=== PATIENT | female | born 1980 | race Caucasian/White ===

== ENCOUNTER → 2016-11-23 | Outpatient (CLI) | payer OTHER ==
[~2016-11-23] MED LIST: DIPH25CA65 PO; LISI20TA PO; PANT40TA PO; RANI150T3 PO
[2016-11-23 12:28] LABS: BASO % 0.1 %; BASO ABS # 0.01 K/uL (0-0.2); COMPLETE YES; EOS % 2.1 %; HEMATOCRIT 42.8 % (37-47); IG% 0.1 %; LYMPH ABS # 1.55 K/uL (1.2-3.4); MEAN CELL VOLUME 86.8 fL (80-100); MEAN CORPUSCULAR HEMOGLOBIN 29.6 pg (25-34); MEAN CORPUSCULAR HGB CONC 34.1 g/dl (32-36); MEAN PLATELET VOLUME 11.2 fL (7.4-10.4); MONO % 8.8 %; NEUT % 66.9 %; PLATELET COUNT 290 K/uL (130-400); RED BLOOD COUNT 4.93 M/uL (4.2-5.4); WHITE BLOOD COUNT 7.03 K/uL (4.8-10.8)
[2016-11-23 12:43] LABS: ALT/SGPT 33 U/L (12-78); CREATININE 0.82 mg/dl (0.60-1.20)
[2016-11-23 12:46] LABS: ALKALINE PHOSPHATASE 75 U/L (45-117); AST/SGOT 19 U/L (15-37)
== END | disposition home or self-care (01) ==
LOC: C.LAB1850 10:21
PROVIDERS: ATTEND Internal Medicine Rheumatology
DX: Z79.899 Other long term (current) drug therapy (principal); M72.2 Plantar fascial fibromatosis; M35.9 Systemic involvement of connective tissue, unspecified

== ENCOUNTER → 2017-04-13 | Outpatient (CLI) | payer OTHER ==
[2017-04-13 12:39] LABS: BASO % 0.3 %; BASO ABS # 0.02 K/uL (0-0.2); COMPLETE YES; EOS % 3.5 %; HEMATOCRIT 42.4 % (37-47); IG% 0.2 %; LYMPH % 28.2 %; LYMPH ABS # 1.79 K/uL (1.2-3.4); MEAN CELL VOLUME 87.6 fL (80-100); MEAN CORPUSCULAR HEMOGLOBIN 29.5 pg (25-34); MEAN CORPUSCULAR HGB CONC 33.7 g/dl (32-36); MEAN PLATELET VOLUME 10.8 fL (7.4-10.4); MONO % 10.6 %; NEUT % 57.2 %; PLATELET COUNT 269 K/uL (130-400); RED BLOOD COUNT 4.84 M/uL (4.2-5.4); WHITE BLOOD COUNT 6.35 K/uL (4.8-10.8)
[2017-04-13 12:48] LABS: ALT/SGPT 34 U/L (12-78); AST/SGOT 19 U/L (15-37); CREATININE 0.87 mg/dl (0.60-1.20)
[2017-04-13 12:51] LABS: ALKALINE PHOSPHATASE 83 U/L (45-117)
== END | disposition home or self-care (01) ==
LOC: C.LABBFT 08:09
PROVIDERS: ATTEND Internal Medicine Rheumatology
DX: M72.2 Plantar fascial fibromatosis (principal); M35.9 Systemic involvement of connective tissue, unspecified; Z79.899 Other long term (current) drug therapy

== ENCOUNTER → 2017-05-11 | Outpatient (CLI) | payer OTHER ==
[2017-05-11 12:52] LABS: ALT/SGPT 32 U/L (12-78); BLOOD UREA NITROGEN 15 mg/dl (7-18); BUN/CREATININE RATIO 15.9 (10-20); CALCIUM 8.9 mg/dl (8.5-10.1); CARBON DIOXIDE 25 mmol/L (21-32); CHLORIDE 104 mmol/L (98-107); CHOLESTEROL 172 mg/dl (0-200); CREATININE 0.96 mg/dl (0.60-1.20); GLUCOSE 93 mg/dl (70-99); POTASSIUM 4.1 mmol/L (3.5-5.1); SODIUM 135 mmol/L (136-145)
[2017-05-11 13:02] LABS: ALB/GLOB RATIO 0.9 (0.9-2); ALKALINE PHOSPHATASE 78 U/L (45-117); AST/SGOT 21 U/L (15-37); CHOLESTEROL/HDL RATIO 2.9; HDL CHOLESTEROL 59 mg/dl; LDL CHOLESTEROL CALCULATED 96 mg/dl; TRIGLYCERIDES 86 mg/dl (0-150); VERY LOW DENSITY LIPOPROT CALC 17 mg/dl
[2017-05-11 13:20] LABS: ESTIMATED AVERAGE GLUCOSE 105 mg/dl; HA1C FLAG Normal (Normal)
--- NOTE | 2017-05-16 10:35 | CODING QUERY MEDICAL NECESSITY ---
CQSUPPORTING DIAGNOSIS NEEDED A supporting diagnosis is required for the test/procedure performed on this patient in order for us to be reimbursed by the patient's insurance. Please provide a supporting diagnosis for the following test/procedure listed below next to the test name along with your signature. *If there is no additional diagnosis for this patient that would support the following test/procedure please document that below next to the test/procedure. Test(s)/Procedure(s) that require a supporting diagnosis: DOS 05/11/17 GLYCATED HEMOGLOBIN TEST THYROID TEST Provider Signature: Date: Thank you Rukhsana Mayes Health Information Management Once completed, please kindly fax back to [phone] For questions please call [phone]
== END | disposition home or self-care (01) ==
LOC: C.LABBFT 08:09
PROVIDERS: ATTEND Internal Medicine
DX: I10 Essential (primary) hypertension (principal); R73.01 Impaired fasting glucose; E78.5 Hyperlipidemia, unspecified

== ENCOUNTER → 2017-08-22 | Outpatient (CLI) | payer OTHER ==
[2017-08-22 17:07] LABS: BASO % 0.3 %; BASO ABS # 0.02 K/uL (0-0.2); COMPLETE YES; EOS % 2.6 %; HEMATOCRIT 39.3 % (37-47); IG% 0.3 %; LYMPH % 23.6 %; LYMPH ABS # 1.76 K/uL (1.2-3.4); MEAN CELL VOLUME 87.3 fL (80-100); MEAN CORPUSCULAR HEMOGLOBIN 29.6 pg (25-34); MEAN CORPUSCULAR HGB CONC 33.8 g/dl (32-36); MONO % 9.4 %; NEUT % 63.8 %; PLATELET COUNT 281 K/uL (130-400); WHITE BLOOD COUNT 7.45 K/uL (4.8-10.8)
[2017-08-22 17:14] LABS: ALT/SGPT 30 U/L (12-78); AST/SGOT 18 U/L (15-37); CREATININE 0.91 mg/dl (0.60-1.20)
== END | disposition home or self-care (01) ==
LOC: C.LABBFT 12:05
PROVIDERS: ATTEND Internal Medicine Rheumatology
DX: Z51.81 Encounter for therapeutic drug level monitoring (principal); Z79.899 Other long term (current) drug therapy; M72.2 Plantar fascial fibromatosis; M35.9 Systemic involvement of connective tissue, unspecified

== ENCOUNTER → 2017-12-19 | Outpatient (CLI) | payer OTHER ==
[2017-12-19 12:42] LABS: BASO % 0.5 %; BASO ABS # 0.03 K/uL (0-0.2); EOS % 3.8 %; EOS ABS # 0.22 K/uL (0-0.5); HEMATOCRIT 42.9 % (37-47); HEMOGLOBIN 14.2 g/dL (12.0-16.0); IG# 0.01 K/uL (0.00-0.02); LYMPH % 28.6 %; LYMPH ABS # 1.64 K/uL (1.2-3.4); MEAN CORPUSCULAR HEMOGLOBIN 28.1 pg (25-34); MEAN CORPUSCULAR HGB CONC 33.1 g/dl (32-36); MEAN PLATELET VOLUME 10.6 fL (7.4-10.4); MONO % 7.9 %; MONO ABS # 0.45 K/uL (0.11-0.59); NEUT ABS # 3.38 K/uL (1.4-6.5); PLATELET COUNT 284 K/uL (130-400); RED CELL DISTRIBUTION WIDTH SD 46.6 fL (36.4-46.3); WHITE BLOOD COUNT 5.73 K/uL (4.8-10.8)
[2017-12-19 13:50] LABS: ALT/SGPT 30 U/L (12-78); AST/SGOT 14 U/L (15-37)
== END | disposition home or self-care (01) ==
LOC: C.LABBFT 09:20
PROVIDERS: ATTEND Internal Medicine Rheumatology
DX: Z51.81 Encounter for therapeutic drug level monitoring (principal); Z79.899 Other long term (current) drug therapy; M35.9 Systemic involvement of connective tissue, unspecified; L02.92 Furuncle, unspecified

== ENCOUNTER 2018-02-06 13:29 | Emergency (ER) | payer OTHER ==
[~2018-02-06] VITALS: Ht 162.6 cm; Wt 122.0 kg
[2018-02-06 13:35] VITALS: TEMP 36.6; Ht 162.6 cm; Wt 122.0 kg
[2018-02-06] MEDS ORDERED: PLQ200 (14:24)
[2018-02-06] MEDS ORDERED: MELO-83 (14:24)
[2018-02-06] MEDS ORDERED: LISI-787 PO (14:27)
--- NOTE | 2018-02-06 14:51 | EMERGENCY ROOM VISIT NOTE ---
History First contact with patient: 14:22 Chief Complaint: BACK PAIN Stated Complaint: SHARP PAINS IN BACK, HEAD NUMB, SHAKEING,DRY MOUTH History of Present Illness 37F who presents to the Emergency Room with complaints of upper back pain starting this morning. The pain is worse when she moves. She was at work when the pain started. She denies any trauma to the area. She had similar symptoms a couple of years ago and the pain went away on her own. The pain radiates to her shoulder blades. On review of systems she denies fevers, denies vomit, denies diarrhea, denies chest pain, but states that she is short of breath and it's new onset. No cough. PMHx: Hypokalemia from her medications, HTN, s/p cholecystectomy, GERD. Review of Systems See HPI for pertinent positives and negatives. A total of ten systems were reviewed and were otherwise negative. Constitutional: No fever, No chills Respiratory: + shortness of breath, + dyspnea on exertion, No cough, No sputum, No wheezing, No dyspnea at rest Cardiovascular: No chest pain Abdomen: No pain, No nausea, No vomiting, No diarrhea, No constipation Genitourinary - Female: No dysuria Past Medical/Surgical History Medical Problems: (1) Allergy to bee sting (2) Diabetes mellitus type 2 (3) ESOPHAGEAL REFLUX (4) Gastritis (5) GERD (gastroesophageal reflux disease) (6) Head contusion (7) Hiatal hernia (8) HYPERLIPIDEMIA NEC/NOS (9) HYPERTENSION NOS (10) IMPAIRED FASTING GLUCOSE (11) MORBID OBESITY (12) OBESITY, NOS (13) Work related injury Surgical Problems: (1) Cholecystectomy (2) Jbphh Teeth Removal Family History Cancer Diabetes mellitus Gallbladder disease Heart disease Hypertension Seizures Social History Smoking Status: Never Smoker Alcohol Use: none Drug Use: none Marital Status: single Housing Status: lives with family Occupation Status: employed Current/Historical Medications Scheduled Lisinopril/Hctz (Zestoretic 20MG/12.5MG), 1 TAB PO DAILY Pantoprazole (Protonix), 40 MG PO DAILY Ranitidine Hcl (Zantac), 150 MG PO HS Scheduled PRN Diphenhydramine Hcl (Benadryl Allergy), 2 CAP PO DAILY PRN for ALLERGIC REACTION Miscellaneous Medications Hydroxychloroquine Sulfate (Hydroxychloroquine Sulfat) Meloxicam (Meloxicam) Physical Exam Vital Signs Date Time Temp Pulse Resp B/P (MAP) Pulse Ox O2 Delivery O2 Flow Rate FiO2 02/06/18 15:35 93 18 135/88 99 Room Air 02/06/18 13:35 36.6 105 18 130/77 100 Room Air Physical Exam Gen: No acute distress. HEENT: Head - normocephalic and atraumatic. Pupils are equal, round, and reactive to light. Extraocular eye muscles are intact and sclera are anicteric. Ears - bilaterally patent canals with noninjected tympanic membranes and no evidence of hemotympanum. Nose - moist nasal mucosa without discharge. Mouth - moist buccal mucosa. Oropharynx is nonerythematous and there is no tonsillar exudate or edema noted. Neck: Supple; no JVD, nuchal rigidity, cervical lymphadenopathy, or auscultated bruits. Heart: Regular rate and rhythm. There is a normal S1 and S2 with no murmurs, clicks, or gallops appreciated. Lungs: Clear to auscultation bilaterally with no wheezes, rales, or rhonchi. Abdomen: Soft, completely nontender, nondistended, with good bowel sounds. There are no palpable pulsatile masses or hepatosplenomegaly. There is no guarding, rigidity, or rebound noted. Extremities: No evidence of cyanosis, clubbing, or edema. There are easily palpable peripheral pulses. Pt has pain on palpation of the cervical and thoracic spine. The pain is also worse with movement (lateral flexion of the spine). Skin: No rash on the skin. Neuro:The patient is awake and alert, oriented to day, time, and place. Muscle strength is 5/5 in all 4 extremities. The patient has equal mini baccarat dealer strength and equal pedal push and pull. There are no cerebellar signs. Medical Decision & Procedures ER Provider Diagnostic Interpretation: CHEST 1 VW FRONT-NOT PORTABLE HISTORY: 37 years-old Female SOB acute shortness of breath COMPARISON: None available TECHNIQUE: AP view of the chest FINDINGS: Cardiac mediastinal and hilar silhouettes are within normal limits. There is no pneumothorax, pleural effusion, focal airspace consolidation or overt pulmonary edema. The bones of the chest appear grossly intact. Surgical clips of the right upper quadrant suggest prior cholecystectomy. IMPRESSION: No acute process. CERVICAL SPINE 2 OR 3 VIEWS CLINICAL HISTORY: 37 years-old Female presenting with Cervicalgia. TECHNIQUE: Lateral, frontal, and open-mouth odontoid views of the cervical spine were obtained. COMPARISON: 02/05/2011. FINDINGS: Straightening of normal cervical lordosis likely positional. Vertebral bodies maintain normal height and alignment. Intervertebral disc heights preserved. No degenerative change. No evidence of a fracture or subluxation. Normal predental interval. No prevertebral soft tissue swelling. Lung apices clear. Lateral masses of C1 articulate normally with C2. IMPRESSION: Straightening of normal cervical lordosis possibly positional or related to muscle spasm. No radiographic evidence of acute osseous injury or degenerative change. THORACIC SPINE 3 VIEWS ROUTINE HISTORY: 37 years-old Female thoracic spine tenderness acute mid back pain without reported trauma COMPARISON: Chest radiograph of same day TECHNIQUE: 3 views of the thoracic spine FINDINGS: There are 12 thoracic type rib-bearing vertebral segments present. Mild multilevel endplate spurring without acute fracture, subluxation or significant intervertebral disc space narrowing. No compression deformity. Imaged lung barnes appear clear. Cholecystectomy clips noted. IMPRESSION: No acute fracture or subluxation. Laboratory Results 02/06/18 14:57 Red Blood Count 4.78, Mean Corpuscular Volume 83.7, Mean Corpuscular Hemoglobin 28.7, Mean Corpuscular Hemoglobin Concent 34.3, Mean Platelet Volume 9.7, Neutrophils (%) (Auto) 64.0, Lymphocytes (%) (Auto) 24.5, Monocytes (%) (Auto) 9.1, Eosinophils (%) (Auto) 2.0, Basophils (%) (Auto) 0.3, Neutrophils # (Auto) 4.44, Lymphocytes # (Auto) 1.70, Monocytes # (Auto) 0.63, Eosinophils # (Auto) 0.14, Basophils # (Auto) 0.02 02/06/18 14:57 Test 02/06/18 14:57 White Blood Count 6.94 K/uL (4.8-10.8) Red Blood Count 4.78 M/uL (4.2-5.4) Hemoglobin 13.7 g/dL (12.0-16.0) Hematocrit 40.0 % (37-47) Mean Corpuscular Volume 83.7 fL (80-100) Mean Corpuscular Hemoglobin 28.7 pg (25-34) Mean Corpuscular Hemoglobin Concent 34.3 g/dl (32-36) Platelet Count 267 K/uL (130-400) Mean Platelet Volume 9.7 fL (7.4-10.4) Neutrophils (%) (Auto) 64.0 % Lymphocytes (%) (Auto) 24.5 % Monocytes (%) (Auto) 9.1 % Eosinophils (%) (Auto) 2.0 % Basophils (%) (Auto) 0.3 % Neutrophils # (Auto) 4.44 K/uL (1.4-6.5) Lymphocytes # (Auto) 1.70 K/uL (1.2-3.4) Monocytes # (Auto) 0.63 K/uL (0.11-0.59) Eosinophils # (Auto) 0.14 K/uL (0-0.5) Basophils # (Auto) 0.02 K/uL (0-0.2) RDW Standard Deviation 45.0 fL (36.4-46.3) RDW Coefficient of Variation 14.7 % (11.5-14.5) Immature Granulocyte % (Auto) 0.1 % Immature Granulocyte # (Auto) 0.01 K/uL (0.00-0.02) Anion Gap 6.0 mmol/L (3-11) Est Creatinine Clear Calc Drug Dose 106.6 ml/min Estimated GFR () 90.5 Estimated GFR (Non- 78.1 BUN/Creatinine Ratio 17.3 (10-20) Calcium Level 8.7 mg/dl (8.5-10.1) Total Bilirubin 0.3 mg/dl (0.2-1) Aspartate Amino Transf (AST/SGOT) 24 U/L (15-37) Alanine Aminotransferase (ALT/SGPT) 41 U/L (12-78) Alkaline Phosphatase 86 U/L (45-117) Total Protein 7.9 gm/dl (6.4-8.2) Albumin 4.0 gm/dl (3.4-5.0) Globulin 3.9 gm/dl (2.5-4.0) Albumin/Globulin Ratio 1.0 (0.9-2) Lipase 151 U/L (73-393) Medications Administered Medications (Trade) Dose Ordered Sig/Figueroa Route Start Time Stop Time Status Last Admin Dose Admin Ketorolac Tromethamine (Toradol Inj) 15 mg ONE ONCE IV 02/06/18 15:00 02/06/18 15:02 DC 02/06/18 15:09 15 MG Medical Decision The patient's care and disposition was discussed with Dr. Roman, Attending ED Physician. This is a 37F with upper back pain. Differential diagnosis include lumbago, sciatica, cauda equina, epidural abscess, osteomyelitis, fracture, aortic disease, metastatic disease, infection, renal colic, gastrointestinal, as well as others were entertained. Triage Nursing notes were reviewed. ED Course included an extensive history and physical exam, labs and imaging. Labs and Imaging were WNL. 2:30pm - Pt was seen and examined by myself and initial orders were placed. 2:50 - Pt was examined by Dr. Roman. 3:09 - Pt was given a dose of 15mg IV Toradol. 4:15pm - Imaging results reviewed with patient. Patient reports her pain has improved. We discussed outpatient pain management techniques such as Ibuprofen 600mg TID PRN pain and follow up with Dr. Rudd (she has follow up in May, she might move that appointment up sooner). The pt was informed about the findings as listed above. All questions were answered. Patient was advised to follow up with PCP. Return instructions were outlined and the patient was discharged in good condition. The patient was referred to PCP for recheck of the current condition. Head Trauma GCS Score: 15 Impression Primary Impression: Thoracic back pain Departure Information Dispostion Home / Self-Care Condition GOOD Referrals Will Rudd M.D. (PCP) Patient Instructions My [facility] Resident Involvement: Resident Care Provided Care Provided: Adult ED
[2018-02-06] MEDS ORDERED: KETOROLAC TROMETHAMINE 15 MG/ML VIAL IV ONE (15:00)
[2018-02-06 15:09] LABS: BASO % 0.3 %; BASO ABS # 0.02 K/uL (0-0.2); EOS ABS # 0.14 K/uL (0-0.5); HEMOGLOBIN 13.7 g/dL (12.0-16.0); IG# 0.01 K/uL (0.00-0.02); LYMPH % 24.5 %; MEAN CELL VOLUME 83.7 fL (80-100); MEAN CORPUSCULAR HEMOGLOBIN 28.7 pg (25-34); MEAN CORPUSCULAR HGB CONC 34.3 g/dl (32-36); MEAN PLATELET VOLUME 9.7 fL (7.4-10.4); MONO % 9.1 %; MONO ABS # 0.63 K/uL (0.11-0.59); NEUT ABS # 4.44 K/uL (1.4-6.5); PLATELET COUNT 267 K/uL (130-400); RED CELL DISTRIBUTION WIDTH CV 14.7 % (11.5-14.5); WHITE BLOOD COUNT 6.94 K/uL (4.8-10.8)
[2018-02-06 15:27] LABS: CALCIUM 8.7 mg/dl (8.5-10.1); CREATININE 0.94 mg/dl (0.60-1.20); POTASSIUM 3.5 mmol/L (3.5-5.1)
[2018-02-06 15:30] LABS: TOTAL PROTEIN 7.9 gm/dl (6.4-8.2)
--- NOTE | 2018-02-06 15:41 | DIAGNOSTIC IMAGING REPORT ---
CERVICAL SPINE 2 OR 3 VIEWS CLINICAL HISTORY: 37 years-old Female presenting with Cervicalgia. TECHNIQUE: Lateral, frontal, and open-mouth odontoid views of the cervical spine were obtained. COMPARISON: 02/05/2011. FINDINGS: Straightening of normal cervical lordosis likely positional. Vertebral bodies maintain normal height and alignment. Intervertebral disc heights preserved. No degenerative change. No evidence of a fracture or subluxation. Normal predental interval. No prevertebral soft tissue swelling. Lung apices clear. Lateral masses of C1 articulate normally with C2. IMPRESSION: Straightening of normal cervical lordosis possibly positional or related to muscle spasm. No radiographic evidence of acute osseous injury or degenerative change. Electronically signed by: Carl Dominguez M.D. 02/06/2018 3:40 PM Dictated Date/Time: 02/06/2018 3:38 PM
--- NOTE | 2018-02-06 15:47 | DIAGNOSTIC IMAGING REPORT ---
CHEST 1 VW FRONT-NOT PORTABLE HISTORY: 37 years-old Female SOB acute shortness of breath COMPARISON: None available TECHNIQUE: AP view of the chest FINDINGS: Cardiac mediastinal and hilar silhouettes are within normal limits. There is no pneumothorax, pleural effusion, focal airspace consolidation or overt pulmonary edema. The bones of the chest appear grossly intact. Surgical clips of the right upper quadrant suggest prior cholecystectomy. IMPRESSION: No acute process. The above report was generated using voice recognition software. It may contain grammatical, syntax or spelling errors. Electronically signed by: Tomi Paiz M.D. 02/06/2018 3:46 PM Dictated Date/Time: 02/06/2018 3:45 PM
--- NOTE | 2018-02-06 15:57 | DIAGNOSTIC IMAGING REPORT ---
THORACIC SPINE 3 VIEWS ROUTINE HISTORY: 37 years-old Female thoracic spine tenderness acute mid back pain without reported trauma COMPARISON: Chest radiograph of same day TECHNIQUE: 3 views of the thoracic spine FINDINGS: There are 12 thoracic type rib-bearing vertebral segments present. Mild multilevel endplate spurring without acute fracture, subluxation or significant intervertebral disc space narrowing. No compression deformity. Imaged lung barnes appear clear. Cholecystectomy clips noted. IMPRESSION: No acute fracture or subluxation. The above report was generated using voice recognition software. It may contain grammatical, syntax or spelling errors. Electronically signed by: Tomi Paiz M.D. 02/06/2018 3:55 PM Dictated Date/Time: 02/06/2018 3:54 PM
[2018-02-06 16:25] VITALS: BP 123/94; PULSE 80; O2SAT 100
--- NOTE | 2018-02-06 18:11 | EMERGENCY ROOM VISIT NOTE ---
History Report prepared by Laureen: Suleman Fields Under the Supervision of: Dr. Jw Roman D.O. First contact with patient: 14:22 Chief Complaint: BACK PAIN Stated Complaint: SHARP PAINS IN BACK, HEAD NUMB, SHAKEING,DRY MOUTH History of Present Illness The patient is a 37 year old female who presents to the Emergency Room with complaints of constant pain in her upper back/shoulder blades that began 6 hours ago. The patient notes that her pain is worsened with movement. Her pain onset while she was at work today, when she also experienced dizziness and fatigue. She was feeling short of breath as well, which she believes is secondary to the severity of the pain. She denies any recent cough, runny nose, fevers, vomiting, cough, diarrhea, or chest pain. She has not experienced any recent traumas. There is no history of blood clots. Denies IV drug use. Pain worsens with twisting turning and bending. It is also worse with palpation. No other exacerbating or remitting factors. Source of History: patient Onset: 6 months ago Position: back (upper) Timing: constant Modifying Factors (Worsening): movement Associated Symptoms: + SOB, No fevers, No cough, No nausea, No vomiting Note: patient notes dizziness. Review of Systems See HPI for pertinent positives & negatives. A total of 10 systems reviewed and were otherwise negative. Past Medical & Surgical Medical Problems: (1) Allergy to bee sting (2) Diabetes mellitus type 2 (3) ESOPHAGEAL REFLUX (4) Gastritis (5) GERD (gastroesophageal reflux disease) (6) Head contusion (7) Hiatal hernia (8) HYPERLIPIDEMIA NEC/NOS (9) HYPERTENSION NOS (10) IMPAIRED FASTING GLUCOSE (11) MORBID OBESITY (12) OBESITY, NOS (13) Work related injury Surgical Problems: (1) Cholecystectomy (2) [place] Teeth Removal Family History Cancer Diabetes mellitus Gallbladder disease Heart disease Hypertension Seizures Social History Smoking Status: Never Smoker Alcohol Use: none Drug Use: none Marital Status: single Housing Status: lives with family Occupation Status: employed Current/Historical Medications Scheduled Lisinopril/Hctz (Zestoretic 20MG/12.5MG), 1 TAB PO DAILY Pantoprazole (Protonix), 40 MG PO DAILY Ranitidine Hcl (Zantac), 150 MG PO HS Scheduled PRN Diphenhydramine Hcl (Benadryl Allergy), 2 CAP PO DAILY PRN for ALLERGIC REACTION Miscellaneous Medications Hydroxychloroquine Sulfate (Hydroxychloroquine Sulfat) Meloxicam (Meloxicam) Allergies Coded Allergies: BEE STING (Verified Allergy, Unknown, ?, 02/06/18) Uncoded Allergies: ALCOHOL LIQD (Allergy, Mild, RASH, 05/07/15) BLEACH (Allergy, Unknown, RASH, 10/20/14) HAND STREET LIGHT MECHANIC (Allergy, Unknown, RASH, 10/20/14) MOSQUITO BITE (Allergy, Unknown, CELLULITIS, 05/07/15) Physical Exam Vital Signs Date Time Temp Pulse Resp B/P (MAP) Pulse Ox O2 Delivery O2 Flow Rate FiO2 02/06/18 16:25 80 18 123/94 100 Room Air 02/06/18 15:35 93 18 135/88 99 Room Air 02/06/18 13:35 36.6 105 18 130/77 100 Room Air Physical Exam GENERAL: Sitting up in bed, alert, well appearing, well nourished, no distress, non-toxic EYE EXAM: normal conjunctiva. PERRL and EOM's intact. OROPHARYNX: no exudate, no erythema, lips, buccal mucosa, and tongue normal and mucous membranes are moist NECK: supple, no nuchal rigidity, no adenopathy, non-tender LUNGS: Clear to auscultation. Normal chest wall mechanics HEART: no murmurs, S1 normal and S2 normal ABDOMEN: abdomen soft, non-tender, normo-active bowel sounds, no masses, no rebound or guarding. BACK: Back is symmetrical on inspection and there is no deformity, no midline tenderness, no CVA tenderness. There is acute reproducible middle to upper; thoracic tenderness to palpation bilaterally. SKIN: no rashes and no bruising UPPER EXTREMITIES: upper extremities are grossly normal. LOWER EXTREMITIES: No pitting edema. Flexion/extension of hips, knees, ankles, and EHL are 5/5 bilaterally. NEURO EXAM: Normal sensorium, cranial nerves II-XII intact, normal speech, no weakness of arms, no weakness of legs. No drift. Finger to nose intact. Gross sensation intact. Medical Decision & Procedures ER Provider Diagnostic Interpretation: Radiology results as stated below per my review and the radiologist's interpretation: CHEST 1 VW FRONT-NOT PORTABLE HISTORY: 37 years-old Female SOB acute shortness of breath COMPARISON: None available TECHNIQUE: AP view of the chest FINDINGS: Cardiac mediastinal and hilar silhouettes are within normal limits. There is no pneumothorax, pleural effusion, focal airspace consolidation or overt pulmonary edema. The bones of the chest appear grossly intact. Surgical clips of the right upper quadrant suggest prior cholecystectomy. IMPRESSION: No acute process. The above report was generated using voice recognition software. It may contain grammatical, syntax or spelling errors. Electronically signed by: Tomi Paiz M.D. 02/06/2018 3:46 PM Dictated Date/Time: 02/06/2018 3:45 PM CERVICAL SPINE 2 OR 3 VIEWS CLINICAL HISTORY: 37 years-old Female presenting with Cervicalgia. TECHNIQUE: Lateral, frontal, and open-mouth odontoid views of the cervical spine were obtained. COMPARISON: 02/05/2011. FINDINGS: Straightening of normal cervical lordosis likely positional. Vertebral bodies maintain normal height and alignment. Intervertebral disc heights preserved. No degenerative change. No evidence of a fracture or subluxation. Normal predental interval. No prevertebral soft tissue swelling. Lung apices clear. Lateral masses of C1 articulate normally with C2. IMPRESSION: Straightening of normal cervical lordosis possibly positional or related to muscle spasm. No radiographic evidence of acute osseous injury or degenerative change. Electronically signed by: Carl Dominguez M.D. 02/06/2018 3:40 PM Dictated Date/Time: 02/06/2018 3:38 PM THORACIC SPINE 3 VIEWS ROUTINE HISTORY: 37 years-old Female thoracic spine tenderness acute mid back pain without reported trauma COMPARISON: Chest radiograph of same day TECHNIQUE: 3 views of the thoracic spine FINDINGS: There are 12 thoracic type rib-bearing vertebral segments present. Mild multilevel endplate spurring without acute fracture, subluxation or significant intervertebral disc space narrowing. No compression deformity. Imaged lung barnes appear clear. Cholecystectomy clips noted. IMPRESSION: No acute fracture or subluxation. The above report was generated using voice recognition software. It may contain grammatical, syntax or spelling errors. Electronically signed by: Tomi Paiz M.D. 02/06/2018 3:55 PM Dictated Date/Time: 02/06/2018 3:54 PM Laboratory Results 02/06/18 14:57 Red Blood Count 4.78, Mean Corpuscular Volume 83.7, Mean Corpuscular Hemoglobin 28.7, Mean Corpuscular Hemoglobin Concent 34.3, Mean Platelet Volume 9.7, Neutrophils (%) (Auto) 64.0, Lymphocytes (%) (Auto) 24.5, Monocytes (%) (Auto) 9.1, Eosinophils (%) (Auto) 2.0, Basophils (%) (Auto) 0.3, Neutrophils # (Auto) 4.44, Lymphocytes # (Auto) 1.70, Monocytes # (Auto) 0.63, Eosinophils # (Auto) 0.14, Basophils # (Auto) 0.02 02/06/18 14:57 Test 02/06/18 14:57 White Blood Count 6.94 K/uL (4.8-10.8) Red Blood Count 4.78 M/uL (4.2-5.4) Hemoglobin 13.7 g/dL (12.0-16.0) Hematocrit 40.0 % (37-47) Mean Corpuscular Volume 83.7 fL (80-100) Mean Corpuscular Hemoglobin 28.7 pg (25-34) Mean Corpuscular Hemoglobin Concent 34.3 g/dl (32-36) Platelet Count 267 K/uL (130-400) Mean Platelet Volume 9.7 fL (7.4-10.4) Neutrophils (%) (Auto) 64.0 % Lymphocytes (%) (Auto) 24.5 % Monocytes (%) (Auto) 9.1 % Eosinophils (%) (Auto) 2.0 % Basophils (%) (Auto) 0.3 % Neutrophils # (Auto) 4.44 K/uL (1.4-6.5) Lymphocytes # (Auto) 1.70 K/uL (1.2-3.4) Monocytes # (Auto) 0.63 K/uL (0.11-0.59) Eosinophils # (Auto) 0.14 K/uL (0-0.5) Basophils # (Auto) 0.02 K/uL (0-0.2) RDW Standard Deviation 45.0 fL (36.4-46.3) RDW Coefficient of Variation 14.7 % (11.5-14.5) Immature Granulocyte % (Auto) 0.1 % Immature Granulocyte # (Auto) 0.01 K/uL (0.00-0.02) Anion Gap 6.0 mmol/L (3-11) Est Creatinine Clear Calc Drug Dose 106.6 ml/min Estimated GFR () 90.5 Estimated GFR (Non- 78.1 BUN/Creatinine Ratio 17.3 (10-20) Calcium Level 8.7 mg/dl (8.5-10.1) Total Bilirubin 0.3 mg/dl (0.2-1) Aspartate Amino Transf (AST/SGOT) 24 U/L (15-37) Alanine Aminotransferase (ALT/SGPT) 41 U/L (12-78) Alkaline Phosphatase 86 U/L (45-117) Total Protein 7.9 gm/dl (6.4-8.2) Albumin 4.0 gm/dl (3.4-5.0) Globulin 3.9 gm/dl (2.5-4.0) Albumin/Globulin Ratio 1.0 (0.9-2) Lipase 151 U/L (73-393) Laboratory results per my review. Medications Administered Medications (Trade) Dose Ordered Sig/Figueroa Route Start Time Stop Time Status Last Admin Dose Admin Ketorolac Tromethamine (Toradol Inj) 15 mg ONE ONCE IV 02/06/18 15:00 02/06/18 15:02 DC 02/06/18 15:09 15 MG ECG Per My Interpretation Indication: back/shoulder pain Rate (beats per minute): 98 Rhythm: sinus tachycardia Findings: other (Normal axis, No PVCs, poor baseline in the inferior ) ED Course ED COURSE: Vital signs were reviewed and showed tachycardic vitals. The patients medical record was reviewed The above diagnostic studies were performed and reviewed. ED treatments and interventions as stated above. 1453: The patient was evaluated in room C9. A complete history and physical examination was performed. 1500: Ordered Toradol 15 mg IV. 1621: Upon reevaluation, the patient is resting in bed.I discussed my findings with the patient and she understands and agrees with the treatment plan. Based on the patients age, coexisting illnesses, exam and lab findings the decision to treat as an outpatient was made. The patient remained stable while under my care. The patient appeared well at the time of discharge. Medical Decision Differential diagnoses includes but is not limited to radiculopathy, muscle strain, facture, cauda equina, mass, and disc herniation. Patient is a 37-year-old female who presents the ER for upper back pain. Pain is worsened with twisting turning bending and movement. CBC along with BMP, LFTs, bilirubin and lipase is unremarkable. Pain is located in the upper thoracic region. This is not in the CVA region. She has no urinary symptoms. She is neurologically intact. Chest x-ray along with x-rays of the cervical and thoracic spine were unremarkable. Patient was given IV Toradol. She did feel significant better. I do favor this is purely muscle skeletal. EKG was unremarkable. Patient was updated at bedside and discharged to follow-up with PCP as an outpatient. Discussed with Pt concerning signs and symptoms to watch out for. Pt was instructed to follow up with their PCP and discussed with the patient their option to return to the ED at anytime for persistent or worsening symptoms. The appropriate anticipatory guidance and out-patient management, including indications for return to the emergency department, were explained at length to the patient and understood. Medication Reconcilliation Current Medication List: was personally reviewed by me Blood Pressure Screening Patient's blood pressure: Normal blood pressure Impression Primary Impression: Back pain Scribe Attestation The scribe's documentation has been prepared under my direction and personally reviewed by me in its entirety. I confirm that the note above accurately reflects all work, treatment, procedures, and medical decision making performed by me. Departure Information Dispostion Home / Self-Care Referrals Will Rudd M.D. (PCP) Forms HOME CARE DOCUMENTATION FORM, IMPORTANT VISIT INFORMATION Patient Instructions My [facility] Additional Instructions Please follow up with your primary care doctor with in the next 24 hours. Any worsening of your symptoms, please return to the ED immediately. This includes any fevers greater than 100.4, worsening pain, weakness or numbness in her arms or legs, numbness in her groin, chest pain, shortness breath, persistent nausea , vomiting, unable to eat or drink, or any other concerning signs or symptoms from your standpoint. Please take Tylenol or Motrin as needed for pain. No heavy lifting. Problem Qualifiers Primary Impression: Back pain Back pain location: thoracic back pain Chronicity: acute Back pain laterality: bilateral Qualified Codes: M54.6 - Pain in thoracic spine
== END 2018-02-06 16:31 | disposition home or self-care (01) ==
LOC: C.EDB 13:30 → C.EDC 16:31
DX: M54.6 Pain in thoracic spine (principal); K21.9 Gastro-esophageal reflux disease without esophagitis; I10 Essential (primary) hypertension; Z91.030 Bee allergy status; Z91.048 Other nonmedicinal substance allergy status

== ENCOUNTER 2018-05-03 14:20 | Emergency (ER) | payer OTHER ==
[~2018-05-03] VITALS: Ht 162.6 cm; Wt 125.6 kg
[~2018-05-03 14:20] MED LIST changes: +CLIN1SOL23 TOP; +LISI-787 PO; -LISI20TA PO; +MELO-83 PO; +OMEP40CA41 PO; -PANT40TA PO; +PLQ200 PO
[2018-05-03 14:27] VITALS: TEMP 36.6; Ht 162.6 cm; Wt 125.6 kg
[2018-05-03] MEDS ORDERED: SODIUM CHLORIDE 0.9% 1000ML 1,000 ML IV STA (14:51)
[2018-05-03] MEDS ORDERED: DiphenhydrAMINE HCL 50 MG/ML VIAL IV STA (14:51)
[2018-05-03] MEDS ORDERED: ONDANSETRON INJ 2 MG/ML 2 ML VIAL IV STA ×2 (14:51→16:06)
[2018-05-03 15:01] LABS: BASO % 0.3 %; BASO ABS # 0.02 K/uL (0-0.2); EOS % 3.1 %; EOS ABS # 0.23 K/uL (0-0.5); HEMATOCRIT 40.7 % (37-47); HEMOGLOBIN 13.9 g/dL (12.0-16.0); IG# 0.02 K/uL (0.00-0.02); LYMPH ABS # 1.99 K/uL (1.2-3.4); MEAN CELL VOLUME 83.1 fL (80-100); MEAN CORPUSCULAR HEMOGLOBIN 28.4 pg (25-34); MEAN CORPUSCULAR HGB CONC 34.2 g/dl (32-36); MEAN PLATELET VOLUME 9.9 fL (7.4-10.4); MONO % 8.7 %; MONO ABS # 0.64 K/uL (0.11-0.59); NEUT % 60.6 %; NEUT ABS # 4.48 K/uL (1.4-6.5); PLATELET COUNT 275 K/uL (130-400); RED CELL DISTRIBUTION WIDTH CV 14.4 % (11.5-14.5); RED CELL DISTRIBUTION WIDTH SD 44.1 fL (36.4-46.3); WHITE BLOOD COUNT 7.38 K/uL (4.8-10.8)
[2018-05-03 15:16] VITALS: O2SAT 100
--- NOTE | 2018-05-03 15:18 | EMERGENCY ROOM VISIT NOTE ---
History Report prepared by Laureen: Jennyfer Porras Under the Supervision of: Dr. Enzo Jackson M.D. First contact with patient: 14:48 Chief Complaint: ILLNESS Stated Complaint: POTASSIUM LOW, MOSQUITO BITE/ALLERGY History of Present Illness The patient is a 38 year old female who presents to the Emergency Room with complaints of possible low potassium levels over the last couple of hours. The patient states that she has a history of low potassium levels and states that when she has them that she has tightness in her jaw, head, and neck. The patient also reports having muscle spasms and nausea. She reports that she is overheated secondary to work and states that she feels dehydrated. The patient denies having fevers. She reports that she does not take potassium supplements and denies any changes in medications recently. The patient also reports that she has a mosquito bite and that she is allergic to mosquitos. The patient reports that when she gets a bite that she takes Benadryl to alleviate her symptoms. The patient states that she is on the last day of her menstrual cycle. Source of History: patient Onset: over the last couple of hours Position: other (generalized ) Quality: other (low potassium levels) Associated Symptoms: + nausea, No fevers Note: additional symptoms: tightness in jaw, head, and neck; muscle spasms Review of Systems See HPI for pertinent positives & negatives. A total of 10 systems reviewed and were otherwise negative. Past Medical & Surgical Medical Problems: (1) Allergy to bee sting (2) Diabetes mellitus type 2 (3) ESOPHAGEAL REFLUX (4) Gastritis (5) GERD (gastroesophageal reflux disease) (6) Head contusion (7) Hiatal hernia (8) HYPERLIPIDEMIA NEC/NOS (9) HYPERTENSION NOS (10) IMPAIRED FASTING GLUCOSE (11) MORBID OBESITY (12) OBESITY, NOS (13) Work related injury Surgical Problems: (1) Cholecystectomy (2) [place] Teeth Removal Family History Cancer Diabetes mellitus Gallbladder disease Heart disease Hypertension Seizures Social History Smoking Status: Never Smoker Alcohol Use: none Drug Use: none Marital Status: single Housing Status: lives with family Occupation Status: employed Current/Historical Medications Scheduled Clindamycin Phosphate (Topical (Clindamycin Phosphate), 1 APPLN TOP BID Hydroxychloroquine Sulfate (Hydroxychloroquine Sulfat), 200 MG PO BID Lisinopril/Hctz (Zestoretic 20MG/12.5MG), 1 TAB PO DAILY Meloxicam (Meloxicam), 15 MG PO DAILY Omeprazole (Prilosec), 40 MG PO DAILY Ranitidine Hcl (Zantac), 150 MG PO HS Scheduled PRN Diphenhydramine Hcl (Benadryl Allergy), 2 CAP PO DAILY PRN for ALLERGIC REACTION Lorazepam (Ativan), 1 MG PO TID PRN for Anxiety/Agitation Promethazine Hcl (Phenergan), 25 MG PO Q6H PRN for Nausea Allergies Coded Allergies: BEE STING (Verified Allergy, Unknown, ?, 02/06/18) Uncoded Allergies: ALCOHOL LIQD (Allergy, Mild, RASH, 05/07/15) BLEACH (Allergy, Unknown, RASH, 10/20/14) HAND NURSE CLINICIAN (Allergy, Unknown, RASH, 10/20/14) MOSQUITO BITE (Allergy, Unknown, CELLULITIS, 05/07/15) Physical Exam Vital Signs Date Time Temp Pulse Resp B/P (MAP) Pulse Ox O2 Delivery O2 Flow Rate FiO2 05/03/18 17:14 107 16 99 05/03/18 16:57 109 22 102/68 98 Room Air 05/03/18 15:47 111 20 131/98 100 Room Air 05/03/18 15:16 100 Room Air 05/03/18 15:16 92 05/03/18 14:27 36.6 102 18 148/88 99 Room Air Physical Exam GENERAL: Patient is in no acute distress. HEENT: No acute trauma, normocephalic atraumatic, mucous membranes moist, no nasal congestion, no scleral icterus. NECK: No stridor, no adenopathy, no meningismus, trachea is midline. LUNGS: Clear to auscultation bilaterally, no wheeze, no rhonchi, breath sounds equal. HEART: Without murmurs gallops or rubs, regular rate and rhythm. ABDOMEN: Soft, nontender, bowel sounds positive, no hernias, no peritonitis. EXTREMITIES: No cyanosis or edema, full range of motion of all the joints without pain or difficulty, no signs for acute trauma. NEUROLOGIC: Oriented x 3, no acute motor or sensory deficits, no focal weakness. SKIN: Small erythematous papule to the right dorsal medial forearm with some surrounding erythema consistent with a potential mosquito bite, no jaundice, no diaphoresis. Pale. Medical Decision & Procedures Laboratory Results 8/1/18 14:45 Red Blood Count 4.90, Mean Corpuscular Volume 83.1, Mean Corpuscular Hemoglobin 28.4, Mean Corpuscular Hemoglobin Concent 34.2, Mean Platelet Volume 9.9, Neutrophils (%) (Auto) 60.6, Lymphocytes (%) (Auto) 27.0, Monocytes (%) (Auto) 8.7, Eosinophils (%) (Auto) 3.1, Basophils (%) (Auto) 0.3, Neutrophils # (Auto) 4.48, Lymphocytes # (Auto) 1.99, Monocytes # (Auto) 0.64, Eosinophils # (Auto) 0.23, Basophils # (Auto) 0.02 05/03/18 14:45 Test 05/03/18 14:45 05/03/18 14:50 05/03/18 15:25 White Blood Count 7.38 K/uL (4.8-10.8) Red Blood Count 4.90 M/uL (4.2-5.4) Hemoglobin 13.9 g/dL (12.0-16.0) Hematocrit 40.7 % (37-47) Mean Corpuscular Volume 83.1 fL (80-100) Mean Corpuscular Hemoglobin 28.4 pg (25-34) Mean Corpuscular Hemoglobin Concent 34.2 g/dl (32-36) Platelet Count 275 K/uL (130-400) Mean Platelet Volume 9.9 fL (7.4-10.4) Neutrophils (%) (Auto) 60.6 % Lymphocytes (%) (Auto) 27.0 % Monocytes (%) (Auto) 8.7 % Eosinophils (%) (Auto) 3.1 % Basophils (%) (Auto) 0.3 % Neutrophils # (Auto) 4.48 K/uL (1.4-6.5) Lymphocytes # (Auto) 1.99 K/uL (1.2-3.4) Monocytes # (Auto) 0.64 K/uL (0.11-0.59) Eosinophils # (Auto) 0.23 K/uL (0-0.5) Basophils # (Auto) 0.02 K/uL (0-0.2) RDW Standard Deviation 44.1 fL (36.4-46.3) RDW Coefficient of Variation 14.4 % (11.5-14.5) Immature Granulocyte % (Auto) 0.3 % Immature Granulocyte # (Auto) 0.02 K/uL (0.00-0.02) Anion Gap 8.0 mmol/L (3-11) Est Creatinine Clear Calc Drug Dose 94.4 ml/min Estimated GFR () 76.8 Estimated GFR (Non- 66.3 BUN/Creatinine Ratio 13.7 (10-20) Calcium Level 8.6 mg/dl (8.5-10.1) Magnesium Level 2.3 mg/dl (1.8-2.4) Total Bilirubin 0.3 mg/dl (0.2-1) Aspartate Amino Transf (AST/SGOT) 18 U/L (15-37) Alanine Aminotransferase (ALT/SGPT) 30 U/L (12-78) Alkaline Phosphatase 85 U/L (45-117) Total Protein 8.2 gm/dl (6.4-8.2) Albumin 4.0 gm/dl (3.4-5.0) Globulin 4.2 gm/dl (2.5-4.0) Albumin/Globulin Ratio 1.0 (0.9-2) Thyroid Stimulating Hormone (TSH) 1.580 uIu/ml (0.300-4.500) Human Chorionic Gonadotropin, Qual NEG (NEG) Urine Color YELLOW Urine Appearance CLEAR (CLEAR) Urine pH 5.0 (4.5-7.5) Urine Specific [place] 1.010 (1.000-1.030) Urine Protein NEG (NEG) Urine Glucose (UA) NEG (NEG) Urine Ketones NEG (NEG) Urine Occult Blood NEG (NEG) Urine Nitrite NEG (NEG) Urine Bilirubin NEG (NEG) Urine Urobilinogen NEG (NEG) Urine Leukocyte Esterase NEG (NEG) Bedside Glucose 80 mg/dl (70-90) Laboratory results reviewed by me. Medications Administered Medications (Trade) Dose Ordered Sig/Figueroa Route Start Time Stop Time Status Last Admin Dose Admin Ondansetron HCl (Zofran Inj) 4 mg NOW STAT IV 05/03/18 14:51 05/03/18 14:53 DC 05/03/18 15:11 4 MG Sodium Chloride 1,000 ml @ 999 mls/hr Q1H1M STAT IV 05/03/18 14:51 05/03/18 15:51 DC 05/03/18 15:11 999 MLS/HR Diphenhydramine HCl (Benadryl Inj) 50 mg NOW STAT IV 05/03/18 14:51 05/03/18 14:53 DC 05/03/18 15:12 50 MG Potassium Chloride (Klor-Con M10) 40 meq NOW STAT PO 05/03/18 15:36 05/03/18 15:38 DC 05/03/18 15:47 40 MEQ Lorazepam (Ativan Inj) 0.5 mg NOW STAT IV 05/03/18 16:06 05/03/18 16:07 DC 05/03/18 16:17 0.5 MG Ondansetron HCl (Zofran Inj) 4 mg NOW STAT IV 05/03/18 16:06 05/03/18 16:07 DC 05/03/18 16:17 4 MG Sodium Chloride 500 ml @ 999 mls/hr Q31M STAT IV 05/03/18 16:06 05/03/18 16:36 DC 05/03/18 16:18 999 MLS/HR ECG Per My Interpretation Indication: weakness Rate (beats per minute): 93 Rhythm: normal sinus Findings: other (no ST elevations, no PVCs) ED Course 1449: The patient was evaluated in room C2B. A complete history and physical exam was performed. 1451: Ordered Benadryl Inj 50 mg IV, Sodium Chloride 1000 ml @ 999 mls/hr IV, Zofran Inj 4 mg IV. 1536: Ordered Potassium Chloride 40 meq PO. 1605: I reevaluated the patient. I will order more medications and check on the patient. 1606: Ordered Sodium Chloride 500 ml @ 999 mls/hr IV, Zofran Inj 4 mg IV, Ativan Inj 0.5 mg IV. 1705: Reevaluated the patient. Discussed results and discharge instructions: She verbalized understanding and agreement. The patient is ready for discharge. Medical Decision The patient is a 38 year old female who presents to the ED with complaints of low potassium levels. Differential diagnoses considered include dehydration, electrolyte imbalance, low potassium, low magnesium, UTI, , anemia, and allergic reaction. There is no leukocytosis or concerning anemia. No significant electrolyte abnormality, kidney failure or hepatitis. EKG shows a normal sinus rhythm, no acute ischemia. The patient appears to be in a euthyroid state. testing is negative. Urinalysis does not show infection. On exam, the patient appeared somewhat pale and dehydrated, no focal neurologic deficits. She was not toxic or febrile. Patient received IV saline and IV Zofran. She received IV Benadryl. She was given some oral potassium. She did receive IV Ativan and a second dose of IV Zofran. She received a second dose of IV saline. Patient now feels markedly better. She has a benign workup and a benign exam. I do think she may have been somewhat dehydrated. She was reassured and is being discharged home. Of note, the patient admits to some increased anxiety and stress. Certainly, this could be part of her presentation. She will be discharged with a few Ativan to use as needed. [place] Drug Monitoring Program Search Results: patient reviewed within database, no issues identified Medication Reconcilliation Current Medication List: was personally reviewed by me Blood Pressure Screening Patient's blood pressure: Elevated blood pressure Blood pressure disposition: Elevated BP felt to be situational Impression Primary Impression: Dehydration Additional Impression: Weakness Scribe Attestation The scribe's documentation has been prepared under my direction and personally reviewed by me in its entirety. I confirm that the note above accurately reflects all work, treatment, procedures, and medical decision making performed by me. Departure Information Dispostion Home / Self-Care Prescriptions Lorazepam (ATIVAN) 1 Mg Tab 1 MG PO TID Y for Anxiety/Agitation, #6 TAB Prov: Enzo Jackson M.D. 05/03/18 Promethazine Hcl (Phenergan) 25 Mg Tab 25 MG PO Q6H Y for Nausea, #12 TAB Prov: Enzo Jackson M.D. 05/03/18 Referrals Will Rudd M.D. (PCP) Forms HOME CARE DOCUMENTATION FORM, IMPORTANT VISIT INFORMATION, WORK / SCHOOL INSTRUCTIONS Patient Instructions My [facility] Additional Instructions follow with hu ernandez this week for a recheck stay well hydrated use phenergan 1 tab every 6 hours for nausea as needed use ativan 1 tab up to 3x per day for anxiety lab work was ok today return if worsening Problem Qualifiers
[2018-05-03 15:30] LABS: CALCIUM 8.6 mg/dl (8.5-10.1); CREATININE 1.07 mg/dl (0.60-1.20); POTASSIUM 3.6 mmol/L (3.5-5.1); TOTAL PROTEIN 8.2 gm/dl (6.4-8.2)
[2018-05-03] MEDS ORDERED: POTASSIUM CHLORIDE 10 MEQ TABCR PO STA (15:36)
[2018-05-03] MEDS ORDERED: LORAZEPAM 2 MG/ML 1 ML VIAL IV STA (16:06)
[2018-05-03] MEDS ORDERED: SODIUM CHLORIDE 0.9% 500ML 500 ML IV STA (16:06)
[2018-05-03 16:57] VITALS: BP 102/68
[2018-05-03] MEDS ORDERED: PROM25TA9 PO (17:05)
[2018-05-03] MEDS ORDERED: ATV/1 PO (17:05)
[2018-05-03 17:14] VITALS: PULSE 107; O2SAT 99
== END 2018-05-03 17:15 | disposition home or self-care (01) ==
LOC: C.EDB 14:22 → C.EDC 17:15
DX: E86.0 Dehydration (principal); R53.1 Weakness; S50.861A Insect bite (nonvenomous) of right forearm, initial encounter; W57.XXXA Bitten or stung by nonvenomous insect and other nonvenomous arthropods, initial encounter; E11.9 Type 2 diabetes mellitus without complications; K21.9 Gastro-esophageal reflux disease without esophagitis; K29.70 Gastritis, unspecified, without bleeding; E78.5 Hyperlipidemia, unspecified; I10 Essential (primary) hypertension; Z79.899 Other long term (current) drug therapy; Z91.030 Bee allergy status; Z91.048 Other nonmedicinal substance allergy status; Z83.79 Family history of other diseases of the digestive system

== ENCOUNTER → 2018-05-09 | Outpatient (CLI) | payer OTHER ==
[~2018-05-09] MED LIST changes: +ATV/1 PO; +ATV1 PO; +CLON0.5T9 PO; +LXP10 PO; +PROM25TA16 PO; +PROM25TA9 PO; +RANI150T2 PO
[2018-05-09 12:47] LABS: ALBUMIN 4.1 gm/dl (3.4-5.0); ALKALINE PHOSPHATASE 81 U/L (45-117); ALT/SGPT 33 U/L (12-78); AST/SGOT 18 U/L (15-37); BLOOD UREA NITROGEN 16 mg/dl (7-18); CALCIUM 9.1 mg/dl (8.5-10.1); CARBON DIOXIDE 26 mmol/L (21-32); CHOLESTEROL 163 mg/dl (0-200); CREATININE 1.05 mg/dl (0.60-1.20); GLUCOSE 96 mg/dl (70-99); LDL CHOLESTEROL CALCULATED 83 mg/dl; POTASSIUM 3.7 mmol/L (3.5-5.1); SODIUM 134 mmol/L (136-145); TOTAL PROTEIN 8.1 gm/dl (6.4-8.2)
[2018-05-09 12:54] LABS: HEMOGLOBIN A1C 5.4 % (4.5-5.6)
== END | disposition home or self-care (01) ==
LOC: C.LABBFT 10:19
PROVIDERS: ATTEND Physician Assistant Medical
DX: Z51.81 Encounter for therapeutic drug level monitoring (principal); Z79.899 Other long term (current) drug therapy; M35.9 Systemic involvement of connective tissue, unspecified; E78.5 Hyperlipidemia, unspecified; R73.01 Impaired fasting glucose; R79.9 Abnormal finding of blood chemistry, unspecified; F41.1 Generalized anxiety disorder

== ENCOUNTER 2018-05-10 14:43 | Emergency (ER) | payer OTHER ==
[~2018-05-10] VITALS: Ht 162.6 cm; Wt 125.9 kg
[~2018-05-10 14:43] MED LIST changes: -ATV1 PO; -CLIN1SOL23 TOP; -CLON0.5T9 PO; -LXP10 PO; -OMEP40CA41 PO; -PROM25TA16 PO; -RANI150T2 PO
[2018-05-10 14:49] VITALS: TEMP 36.4; Ht 162.6 cm; Wt 125.9 kg
[2018-05-10] MEDS ORDERED: SODIUM CHLORIDE 0.9% 1000ML 1,000 ML IV STA (15:14)
[2018-05-10] MEDS ORDERED: LORAZEPAM 2 MG/ML 1 ML VIAL IV STA (15:14)
[2018-05-10 15:21] LABS: BASO % 0.1 %; BASO ABS # 0.01 K/uL (0-0.2); EOS % 0.5 %; EOS ABS # 0.05 K/uL (0-0.5); HEMATOCRIT 40.6 % (37-47); HEMOGLOBIN 14.1 g/dL (12.0-16.0); IG# 0.02 K/uL (0.00-0.02); LYMPH ABS # 1.69 K/uL (1.2-3.4); MEAN CELL VOLUME 82.5 fL (80-100); MEAN CORPUSCULAR HEMOGLOBIN 28.7 pg (25-34); MEAN CORPUSCULAR HGB CONC 34.7 g/dl (32-36); MEAN PLATELET VOLUME 10.2 fL (7.4-10.4); MONO % 10.4 %; MONO ABS # 0.97 K/uL (0.11-0.59); NEUT % 70.8 %; NEUT ABS # 6.63 K/uL (1.4-6.5); PLATELET COUNT 322 K/uL (130-400); RED CELL DISTRIBUTION WIDTH CV 14.2 % (11.5-14.5); RED CELL DISTRIBUTION WIDTH SD 42.7 fL (36.4-46.3); WHITE BLOOD COUNT 9.37 K/uL (4.8-10.8)
[2018-05-10] MEDS ORDERED: LXP10 PO (15:32)
[2018-05-10] MEDS ORDERED: RANI150T2 PO (15:32)
[2018-05-10] MEDS ORDERED: PROM25TA16 PO (15:32)
[2018-05-10] MEDS ORDERED: ATV1 PO (15:32)
[2018-05-10 15:57] LABS: ALKALINE PHOSPHATASE 93 U/L (45-117); ALT/SGPT 32 U/L (12-78); AST/SGOT 17 U/L (15-37); BLOOD UREA NITROGEN 12 mg/dl (7-18); CALCIUM 8.6 mg/dl (8.5-10.1); CARBON DIOXIDE 20 mmol/L (21-32); CREATININE 1.05 mg/dl (0.60-1.20); GLUCOSE 116 mg/dl (70-99); POTASSIUM 3.3 mmol/L (3.5-5.1); SODIUM 128 mmol/L (136-145); TOTAL PROTEIN 8.1 gm/dl (6.4-8.2)
--- NOTE | 2018-05-10 16:24 | DIAGNOSTIC IMAGING REPORT ---
HEAD CT NONCONTRAST CT DOSE: 537.48 mGy.cm HISTORY: tingling, numbness left arm TECHNIQUE: Multiaxial CT images of the head were performed without the use of intravenous contrast. Automated exposure control was utilized for this study. A dose lowering technique was utilized adhering to the principles of ALARA. Comparison: None. Findings: The paranasal sinuses and mastoid air cells are clear. The calvarium and skull base are intact. The ventricles and sulci are within normal limits. There is no mass, hematoma, midline shift, or acute infarct. Impression: No acute intracranial abnormality. Electronically signed by: Tani Martinez M.D. 05/10/2018 4:22 PM Dictated Date/Time: 05/10/2018 4:17 PM
[2018-05-10] MEDS ORDERED: OMEP40CA41 PO (17:26)
[2018-05-10] MEDS ORDERED: CLIN1SOL23 TOP (17:26)
--- NOTE | 2018-05-10 18:18 | EMERGENCY ROOM VISIT NOTE ---
History First contact with patient: 15:00 Chief Complaint: ILLNESS Stated Complaint: LIGHTHEADED/DIZZY History of Present Illness The patient is a 38 year old female who presents to the Emergency Room with complaints of possible reaction to medication. The patient states that she started taking Lexapro 2 days ago. Since then, she has had intermittent hot flashes, back spasms, tightness in her left wrist, feeling like she is having trouble breathing, dry mouth, shaking legs and feeling tired. She states all of these symptoms coincided with starting the Lexapro. She also takes lorazepam as needed for anxiety but has taken this for a few weeks. She states this helps her symptoms at times. She denies any history of similar symptoms or reactions to medications. Review of Systems A complete 10 point review of systems was reviewed with the patient with pertinent positives and negatives as per history of present illness. All else were negative. Past Medical/Surgical History Medical Problems: (1) Allergy to bee sting (2) Diabetes mellitus type 2 (3) ESOPHAGEAL REFLUX (4) Gastritis (5) GERD (gastroesophageal reflux disease) (6) Head contusion (7) Hiatal hernia (8) HYPERLIPIDEMIA NEC/NOS (9) HYPERTENSION NOS (10) IMPAIRED FASTING GLUCOSE (11) MORBID OBESITY (12) OBESITY, NOS (13) Work related injury Surgical Problems: (1) Cholecystectomy (2) [place] Teeth Removal Family History Cancer Diabetes mellitus Gallbladder disease Heart disease Hypertension Seizures Social History Smoking Status: Never Smoker Alcohol Use: none Drug Use: none Marital Status: single Housing Status: lives with family Occupation Status: employed Current/Historical Medications Scheduled Clindamycin Phosphate (Topical (Clindamycin Phosphate), 1 APPLN TOP BID Escitalopram Oxalate (Escitalopram Oxalate), 10 MG PO DAILY Hydroxychloroquine Sulfate (Hydroxychloroquine Sulfat), 200 MG PO BID Lisinopril/Hctz (Zestoretic 20MG/12.5MG), 1 TAB PO DAILY Meloxicam (Meloxicam), 15 MG PO DAILY Omeprazole (Prilosec), 40 MG PO DAILY Ranitidine HCl (Ranitidine HCl), 150 MG PO HS Scheduled PRN Diphenhydramine Hcl (Benadryl Allergy), 50 MG PO UD PRN for ALLERGIC REACTION Lorazepam (Lorazepam), 1 MG PO TID PRN for Anxiety/Agitation Promethazine HCl (Promethazine HCl), 25 MG PO Q6H PRN for Nausea Physical Exam Vital Signs Date Time Temp Pulse Resp B/P (MAP) Pulse Ox O2 Delivery O2 Flow Rate FiO2 05/10/18 18:30 87 18 130/76 98 05/10/18 16:38 91 16 126/74 100 Room Air 05/10/18 15:20 107 05/10/18 14:49 36.4 112 20 143/76 99 Room Air Physical Exam VITALS: Vitals are noted on the nurse's note and reviewed by myself. Vital signs stable. GENERAL: This is a 38-year-old female, anxious appearing, nondiaphoretic, well- developed well-nourished. SKIN: The skin was without rashes. HEAD: Normocephalic atraumatic. EARS: External auditory canals clear, tympanic membranes pearly murillo without erythema or effusion bilaterally. EYES: Pupils equal round and reactive to light and accommodation. Extraocular movements intact. MOUTH: Mucous membranes moist. NECK: Supple without nuchal rigidity. HEART: Regular rate and rhythm without murmurs gallops or rubs. LUNGS: Clear to auscultation bilaterally without wheezes, rales or rhonchi. ABDOMEN: Soft, nontender to palpation. MUSCULOSKELETAL: Decreased strength/poor effort in bilateral lower extremities. NEURO: Patient was alert and oriented to person place and time. Deep tendon reflexes 2+ throughout. No focal neurological deficits. Medical Decision & Procedures ER Provider Diagnostic Interpretation: HEAD CT NONCONTRAST CT DOSE: 537.48 mGy.cm HISTORY: tingling, numbness left arm TECHNIQUE: Multiaxial CT images of the head were performed without the use of intravenous contrast. Automated exposure control was utilized for this study. A dose lowering technique was utilized adhering to the principles of ALARA. Comparison: None. Findings: The paranasal sinuses and mastoid air cells are clear. The calvarium and skull base are intact. The ventricles and sulci are within normal limits. There is no mass, hematoma, midline shift, or acute infarct. Impression: No acute intracranial abnormality. Laboratory Results 05/10/18 15:05 Red Blood Count 4.92, Mean Corpuscular Volume 82.5, Mean Corpuscular Hemoglobin 28.7, Mean Corpuscular Hemoglobin Concent 34.7, Mean Platelet Volume 10.2, Neutrophils (%) (Auto) 70.8, Lymphocytes (%) (Auto) 18.0, Monocytes (%) (Auto) 10.4, Eosinophils (%) (Auto) 0.5, Basophils (%) (Auto) 0.1, Neutrophils # (Auto ) 6.63, Lymphocytes # (Auto) 1.69, Monocytes # (Auto) 0.97, Eosinophils # (Auto ) 0.05, Basophils # (Auto) 0.01 05/10/18 15:05 Test 05/10/18 15:05 05/10/18 15:40 White Blood Count 9.37 K/uL (4.8-10.8) Red Blood Count 4.92 M/uL (4.2-5.4) Hemoglobin 14.1 g/dL (12.0-16.0) Hematocrit 40.6 % (37-47) Mean Corpuscular Volume 82.5 fL (80-100) Mean Corpuscular Hemoglobin 28.7 pg (25-34) Mean Corpuscular Hemoglobin Concent 34.7 g/dl (32-36) Platelet Count 322 K/uL (130-400) Mean Platelet Volume 10.2 fL (7.4-10.4) Neutrophils (%) (Auto) 70.8 % Lymphocytes (%) (Auto) 18.0 % Monocytes (%) (Auto) 10.4 % Eosinophils (%) (Auto) 0.5 % Basophils (%) (Auto) 0.1 % Neutrophils # (Auto) 6.63 K/uL (1.4-6.5) Lymphocytes # (Auto) 1.69 K/uL (1.2-3.4) Monocytes # (Auto) 0.97 K/uL (0.11-0.59) Eosinophils # (Auto) 0.05 K/uL (0-0.5) Basophils # (Auto) 0.01 K/uL (0-0.2) RDW Standard Deviation 42.7 fL (36.4-46.3) RDW Coefficient of Variation 14.2 % (11.5-14.5) Immature Granulocyte % (Auto) 0.2 % Immature Granulocyte # (Auto) 0.02 K/uL (0.00-0.02) Anion Gap 10.0 mmol/L (3-11) Est Creatinine Clear Calc Drug Dose 96.4 ml/min Estimated GFR () 78.6 Estimated GFR (Non- 67.8 BUN/Creatinine Ratio 11.7 (10-20) Calcium Level 8.6 mg/dl (8.5-10.1) Magnesium Level 2.1 mg/dl (1.8-2.4) Total Bilirubin 0.4 mg/dl (0.2-1) Aspartate Amino Transf (AST/SGOT) 17 U/L (15-37) Alanine Aminotransferase (ALT/SGPT) 32 U/L (12-78) Alkaline Phosphatase 93 U/L (45-117) Troponin I < 0.015 ng/ml (0-0.045) Total Protein 8.1 gm/dl (6.4-8.2) Albumin 4.0 gm/dl (3.4-5.0) Globulin 4.1 gm/dl (2.5-4.0) Albumin/Globulin Ratio 1.0 (0.9-2) Thyroid Stimulating Hormone (TSH) 1.140 uIu/ml (0.300-4.500) Urine Color YELLOW Urine Appearance CLEAR (CLEAR) Urine pH 7.0 (4.5-7.5) Urine Specific [place] 1.006 (1.000-1.030) Urine Protein NEG (NEG) Urine Glucose (UA) NEG (NEG) Urine Ketones TRACE (NEG) Urine Occult Blood NEG (NEG) Urine Nitrite NEG (NEG) Urine Bilirubin NEG (NEG) Urine Urobilinogen NEG (NEG) Urine Leukocyte Esterase TRACE (NEG) Urine WBC (Auto) 1-5 /hpf (0-5) Urine RBC (Auto) 0-4 /hpf (0-4) Urine Hyaline Casts (Auto) 0 /lpf (0-5) Urine Epithelial Cells (Auto) 10-20 /lpf (0-5) Urine Bacteria (Auto) NEG (NEG) Urine Test NEG (NEG) Medications Administered Medications (Trade) Dose Ordered Sig/Figueroa Route Start Time Stop Time Status Last Admin Dose Admin Sodium Chloride 1,000 ml @ 999 mls/hr Q1H1M STAT IV 05/10/18 15:14 05/10/18 16:14 DC 05/10/18 15:54 999 MLS/HR Lorazepam (Ativan Inj) 1 mg NOW STAT IV 05/10/18 15:14 05/10/18 15:16 DC 05/10/18 15:54 1 MG ECG Per My Interpretation Indication: other Rate (beats per minute): 104 Rhythm: sinus tachycardia Findings: no acute ischemic change, no ectopy Medical Decision Differential diagnosis includes reaction to medication, electrolyte abnormality , dehydration, anxiety, serotonin syndrome, among others. The patient is a 38-year-old female who presents today complaining of multiple complaints which she believes are a reaction to Lexapro. Labs revealed no leukocytosis or significant anemia. Patient was found to be hyponatremic with sodium of 128. She was hydrated here. Labs are otherwise unremarkable. Patient was treated with IV Ativan with significant improvement of her symptoms. Her tachycardia improved. When I reevaluated her she was no longer having any muscle spasms and requested something to eat. I advised the patient to stop the Lexapro and follow-up with the prescriber for further treatment. She was advised to return with worsening or new/concerning symptoms. The patient's case was reviewed with Dr. Rogel, ED attending physician, who agreed with my assessment and treatment plan. Based on the patient's presentation and work up, I feel the patient is stable for outpatient treatment. The patient was educated to return to the emergency department for any worsening of their current condition or new/concerning symptoms. [] will follow up with []. Medication Reconcilliation Current Medication List: was personally reviewed by me Blood Pressure Screening Patient's blood pressure: Normal blood pressure Impression Primary Impression: Medication reaction Departure Information Dispostion Home / Self-Care Condition GOOD Referrals Will Rudd M.D. (PCP) Patient Instructions My [facility] Additional Instructions Stop the Lexapro that you were taking. Make sure to rest and drink plenty of fluids. You should follow-up with your primary care provider within 48 hours. They should recheck your sodium, as it was low today. Return to the emergency department with any worsening or new/concerning symptoms. Problem Qualifiers Primary Impression: Medication reaction Encounter type: initial encounter Qualified Codes: T50.905A - Adverse effect of unspecified drugs, medicaments and biological substances, initial encounter
[2018-05-10 18:30] VITALS: BP 130/76; PULSE 87; O2SAT 98
== END 2018-05-10 18:30 | disposition home or self-care (01) ==
LOC: EDBD 14:43 → C.EDA 14:44
DX: T50.905A Adverse effect of unspecified drugs, medicaments and biological substances, initial encounter (principal); E11.9 Type 2 diabetes mellitus without complications; K21.9 Gastro-esophageal reflux disease without esophagitis; K44.9 Diaphragmatic hernia without obstruction or gangrene; E78.5 Hyperlipidemia, unspecified; I10 Essential (primary) hypertension; E66.01 Morbid (severe) obesity due to excess calories

== ENCOUNTER 2018-05-11 18:51 | Emergency (ER) | payer OTHER ==
[~2018-05-11] VITALS: Ht 162.6 cm; Wt 123.0 kg
[~2018-05-11 18:51] MED LIST changes: +ATV1 PO; +CLIN1SOL23 TOP; +LXP10 PO; +OMEP40CA41 PO; +PROM25TA16 PO; +RANI150T2 PO
[2018-05-11 18:59] VITALS: Ht 162.6 cm; Wt 123.0 kg
[2018-05-11 19:13] VITALS: O2SAT 100
[2018-05-11] MEDS ORDERED: SODIUM CHLORIDE 0.9% 1000ML 1,000 ML IV STA (19:36)
[2018-05-11] MEDS ORDERED: LORAZEPAM 2 MG/ML 1 ML VIAL IV STA ×2 (19:36→20:38)
[2018-05-11 20:06] LABS: BASO % 0.2 %; BASO ABS # 0.02 K/uL (0-0.2); EOS % 2.1 %; EOS ABS # 0.19 K/uL (0-0.5); HEMATOCRIT 39.3 % (37-47); HEMOGLOBIN 13.3 g/dL (12.0-16.0); IG# 0.01 K/uL (0.00-0.02); LYMPH ABS # 1.97 K/uL (1.2-3.4); MEAN CELL VOLUME 84.2 fL (80-100); MEAN CORPUSCULAR HEMOGLOBIN 28.5 pg (25-34); MEAN CORPUSCULAR HGB CONC 33.8 g/dl (32-36); MONO ABS # 0.63 K/uL (0.11-0.59); NEUT % 68.6 %; NEUT ABS # 6.14 K/uL (1.4-6.5); PLATELET COUNT 272 K/uL (130-400); RED CELL DISTRIBUTION WIDTH CV 14.7 % (11.5-14.5); RED CELL DISTRIBUTION WIDTH SD 45.6 fL (36.4-46.3); WHITE BLOOD COUNT 8.96 K/uL (4.8-10.8)
[2018-05-11 20:45] LABS: ALBUMIN 3.7 gm/dl (3.4-5.0); ALKALINE PHOSPHATASE 77 U/L (45-117); ALT/SGPT 28 U/L (12-78); AST/SGOT 15 U/L (15-37); CALCIUM 8.2 mg/dl (8.5-10.1); CARBON DIOXIDE 23 mmol/L (21-32); CREATININE 1.29 mg/dl (0.60-1.20); GLUCOSE 111 mg/dl (70-99); LIPASE 171 U/L (73-393); POTASSIUM 3.7 mmol/L (3.5-5.1); SODIUM 138 mmol/L (136-145); TOTAL PROTEIN 7.1 gm/dl (6.4-8.2)
[2018-05-11 21:43] LABS: BLOOD UREA NITROGEN 19 mg/dl (7-18)
[2018-05-11] MEDS ORDERED: ONDANSETRON HOME PACK 4MG OD TAB PO ONE (22:15)
[2018-05-11] MEDS ORDERED: RANITIDINE HCL 150 MG TAB PO ONE (22:15)
[2018-05-11 23:13] VITALS: BP 119/84; PULSE 98; O2SAT 99
--- NOTE | 2018-05-11 23:56 | EMERGENCY ROOM VISIT NOTE ---
History Report prepared by Laureen: Joe Cruz Under the Supervision of: Dr. Raheel Muse M.D. First contact with patient: 19:25 Chief Complaint: OTHER COMPLAINT Stated Complaint: SPASMS, HEAT FLASHES, TIGHT MUSCLES IN JAW & HEAD History of Present Illness The patient is a 38 year old female who presents to the Emergency Room with complaints of fatigue, weakness, shaking and muscle tremors, intermittent hot flashes, and burning pain in the left arm. The patient reports that she was prescribed Lexapro for anxiety that she took 2 days ago and yesterday, a total of 2 pills. She states that she did not take any today. She notes that she was in the ER yesterday for these symptoms, when she was informed that her sodium levels were low. She states that she had no symptoms yesterday until the afternoon, and denied having symptoms 2 days ago when she took her first dose of Lexapro. She reports that she was still shaking after the ER visit, and reports that she almost urinated in her pants at that time. She notes that she was given lorazepam at that time, which seemed to help. She also notes that she had a CT scan of the head that was negative. She reports that she saw Mattie Carbajal PA-C under Dr. Rudd of [facility] who prescribed her 1/2 a dose of Lorazepam, but she states that she took a full dose today. The patient reports that she is currently burping frequently. She notes she ate 3 meals today that had salt in them, but was unable to eat yesterday. She also notes an occasional "grabbing" in the middle of her back that makes it arch. She reports a sensation of tightness in her jaw and face, and notes that she is unable to walk by herself and experiences worsening of her symptoms and blurred vision with exertion. Pt denies LOC, neck pain, chest pain, vomiting, abdominal pain, melena, hematochezia, lymphadenopathy, rash, or other complaints. Source of History: patient Onset: yesterday Position: arm (left), other (global) Quality: other (fatigue, weakness, shaking and muscle tremors, hot flashes, burning left arm pain) Modifying Factors (Worsening): exertion Note: sensation of tightness in face and jaw, burping Review of Systems See HPI for pertinent positives and negatives. A total of ten systems were reviewed and were otherwise negative. Past Medical & Surgical Medical Problems: (1) Allergy to bee sting (2) Diabetes mellitus type 2 (3) ESOPHAGEAL REFLUX (4) Gastritis (5) GERD (gastroesophageal reflux disease) (6) Head contusion (7) Hiatal hernia (8) HYPERLIPIDEMIA NEC/NOS (9) HYPERTENSION NOS (10) IMPAIRED FASTING GLUCOSE (11) MORBID OBESITY (12) OBESITY, NOS (13) Work related injury Surgical Problems: (1) Cholecystectomy (2) [place] Teeth Removal Family History Cancer Diabetes mellitus Gallbladder disease Heart disease Hypertension Seizures Social History Smoking Status: Never Smoker Alcohol Use: none Drug Use: none Marital Status: single Housing Status: lives with family Occupation Status: employed Current/Historical Medications Scheduled Clindamycin Phosphate (Topical (Clindamycin Phosphate), 1 APPLN TOP BID Hydroxychloroquine Sulfate (Hydroxychloroquine Sulfat), 200 MG PO BID Lisinopril/Hctz (Zestoretic 20MG/12.5MG), 1 TAB PO DAILY Meloxicam (Meloxicam), 15 MG PO DAILY Omeprazole (Prilosec), 40 MG PO DAILY Ranitidine HCl (Ranitidine HCl), 150 MG PO HS Scheduled PRN Diphenhydramine Hcl (Benadryl Allergy), 50 MG PO UD PRN for ALLERGIC REACTION Lorazepam (Lorazepam), 1 MG PO TID PRN for Anxiety/Agitation Promethazine HCl (Promethazine HCl), 25 MG PO Q6H PRN for Nausea Allergies Coded Allergies: BEE STING (Verified Allergy, Unknown, ?, 05/11/18) Uncoded Allergies: ALCOHOL LIQD (Allergy, Mild, RASH, 05/07/15) BLEACH (Allergy, Unknown, RASH, 10/20/14) HAND CONVERTER OPERATOR (Allergy, Unknown, RASH, 10/20/14) MOSQUITO BITE (Allergy, Unknown, CELLULITIS, 05/07/15) Physical Exam Vital Signs Date Time Temp Pulse Resp B/P (MAP) Pulse Ox O2 Delivery O2 Flow Rate FiO2 05/11/18 23:13 98 18 119/84 99 05/11/18 22:23 89 05/11/18 21:00 102 18 131/84 99 Room Air 05/11/18 20:00 108 20 117/81 98 Room Air 05/11/18 19:14 117 05/11/18 19:13 100 Room Air 05/11/18 18:59 36.5 108 22 149/86 98 Room Air Physical Exam GENERAL: Awake, alert, anxious-appearing. Occasional rhythmic jerking of her extremities and snapping of her jaw while she is completely awake and conversing. HENT: Normocephalic, atraumatic. Oropharynx unremarkable. EYES: Normal conjunctiva. Sclera non-icteric. NECK: Supple. No nuchal rigidity. FROM. No masses. RESPIRATORY: Clear to auscultation. No wheezes. No rales. Normal respiratory effort. CARDIAC: Tachycardic rate. Normal rhythm. No murmurs. No rubs. Extremities warm and well perfused. Pulses equal. No JVD. GI: Soft, non-distended. No tenderness to palpation. No rebound or guarding. No masses. RECTAL: Deferred. MUSCULOSKELETAL: Atraumatic. Chest examination reveals no tenderness. The back is symmetrical on inspection without obvious abnormality. There is no CVA tenderness to palpation. No joint edema. LOWER EXTREMITIES: Calves are equal size bilaterally and non-tender. No edema. No discoloration. NEURO: Normal sensorium. No sensory or motor deficits noted. SKIN: No rash or jaundice noted. Medical Decision & Procedures Laboratory Results 05/11/18 19:56 Red Blood Count 4.67, Mean Corpuscular Volume 84.2, Mean Corpuscular Hemoglobin 28.5, Mean Corpuscular Hemoglobin Concent 33.8, Mean Platelet Volume 10.0, Neutrophils (%) (Auto) 68.6, Lymphocytes (%) (Auto) 22.0, Monocytes (%) (Auto) 7.0, Eosinophils (%) (Auto) 2.1, Basophils (%) (Auto) 0.2, Neutrophils # (Auto) 6.14, Lymphocytes # (Auto) 1.97, Monocytes # (Auto) 0.63, Eosinophils # (Auto) 0.19, Basophils # (Auto) 0.02 05/11/18 19:56 Test 05/11/18 19:56 05/11/18 20:13 White Blood Count 8.96 K/uL (4.8-10.8) Red Blood Count 4.67 M/uL (4.2-5.4) Hemoglobin 13.3 g/dL (12.0-16.0) Hematocrit 39.3 % (37-47) Mean Corpuscular Volume 84.2 fL (80-100) Mean Corpuscular Hemoglobin 28.5 pg (25-34) Mean Corpuscular Hemoglobin Concent 33.8 g/dl (32-36) Platelet Count 272 K/uL (130-400) Mean Platelet Volume 10.0 fL (7.4-10.4) Neutrophils (%) (Auto) 68.6 % Lymphocytes (%) (Auto) 22.0 % Monocytes (%) (Auto) 7.0 % Eosinophils (%) (Auto) 2.1 % Basophils (%) (Auto) 0.2 % Neutrophils # (Auto) 6.14 K/uL (1.4-6.5) Lymphocytes # (Auto) 1.97 K/uL (1.2-3.4) Monocytes # (Auto) 0.63 K/uL (0.11-0.59) Eosinophils # (Auto) 0.19 K/uL (0-0.5) Basophils # (Auto) 0.02 K/uL (0-0.2) RDW Standard Deviation 45.6 fL (36.4-46.3) RDW Coefficient of Variation 14.7 % (11.5-14.5) Immature Granulocyte % (Auto) 0.1 % Immature Granulocyte # (Auto) 0.01 K/uL (0.00-0.02) Anion Gap 9.0 mmol/L (3-11) Est Creatinine Clear Calc Drug Dose 77.3 ml/min Estimated GFR () 61.3 Estimated GFR (Non- 52.9 BUN/Creatinine Ratio 15.0 (10-20) Calcium Level 8.2 mg/dl (8.5-10.1) Magnesium Level 2.1 mg/dl (1.8-2.4) Total Bilirubin 0.2 mg/dl (0.2-1) Direct Bilirubin < 0.1 mg/dl (0-0.2) Aspartate Amino Transf (AST/SGOT) 15 U/L (15-37) Alanine Aminotransferase (ALT/SGPT) 28 U/L (12-78) Alkaline Phosphatase 77 U/L (45-117) Total Creatine Kinase 71 U/L (26-192) Troponin I < 0.015 ng/ml (0-0.045) Total Protein 7.1 gm/dl (6.4-8.2) Albumin 3.7 gm/dl (3.4-5.0) Lipase 171 U/L (73-393) Thyroid Stimulating Hormone (TSH) 1.460 uIu/ml (0.300-4.500) Human Chorionic Gonadotropin, Qual NEG (NEG) Urine Color YELLOW Urine Appearance CLEAR (CLEAR) Urine pH 6.0 (4.5-7.5) Urine Specific [place] 1.018 (1.000-1.030) Urine Protein NEG (NEG) Urine Glucose (UA) NEG (NEG) Urine Ketones NEG (NEG) Urine Occult Blood NEG (NEG) Urine Nitrite NEG (NEG) Urine Bilirubin NEG (NEG) Urine Urobilinogen NEG (NEG) Urine Leukocyte Esterase SMALL (NEG) Urine WBC (Auto) 1-5 /hpf (0-5) Urine RBC (Auto) 5-10 /hpf (0-4) Urine Hyaline Casts (Auto) 0 /lpf (0-5) Urine Epithelial Cells (Auto) 10-20 /lpf (0-5) Urine Bacteria (Auto) NEG (NEG) Laboratory results reviewed by me Medications Administered Medications (Trade) Dose Ordered Sig/Figueroa Route Start Time Stop Time Status Last Admin Dose Admin Lorazepam (Ativan Inj) 1 mg NOW STAT IV 05/11/18 19:36 05/11/18 19:37 DC 05/11/18 20:20 1 MG Sodium Chloride 1,000 ml @ 125 mls/hr Q8H STAT IV 05/11/18 19:36 05/12/18 03:35 05/11/18 20:21 125 MLS/HR Lorazepam (Ativan Inj) 1 mg NOW STAT IV 05/11/18 20:38 05/11/18 20:39 DC 05/11/18 20:57 1 MG Ranitidine HCl (zANTac TAB) 150 mg NOW ONCE PO 05/11/18 22:15 05/11/18 22:16 DC 05/11/18 22:58 150 MG Ondansetron HCl (ZOFRAN ODT 4MG Home Pack) 1 homepack UD ONCE PO 05/11/18 22:15 05/11/18 22:16 DC 05/11/18 23:08 1 HOMEPACK ECG Per My Interpretation Indication: weakness Rate (beats per minute): 105 Rhythm: sinus tachycardia Findings: other (No PACs. NO PVCs. Normal intervals. No ST elevation or depression.) ED Course 1929: The patient was evaluated in room C8. A complete history and physical exam was performed. 1935: Ordered Sodium Chloride 1000 ml @ 125 mls/hr IV, Lorazepam 1 mg IV 2037: Ordered Lorazepam 1 mg IV 2204: I reevaluated the patient, who states that her symptoms are improved. Discussed results and discharge instructions: She verbalized understanding and agreement. The patient is ready for discharge. She is requesting her evening Zantac. 2214: Ordered Ondansetron HCl 1 homepack PO, Ranitidine HCl 150 mg PO Medical Decision Triage Nursing notes reviewed. The patient's presentation and history were concerning for weakness, tremors, anxiety. Etiologies such as metabolic, infection, hypo/hyperglycemia, electrolyte abnormalities, cardiac sources, intracerebral event, toxicologic, neurologic, mood disorder, as well as others were entertained. The patient was evaluated. She had periodic rhythmic shaking that occurred while we were conversing. She never lost consciousness. This was nonfocal. It was generalized and occurred in different parts of her body. She had no hyperreflexia or clonus. There is no significant nystagmus noted on examination. No clear signs of serotonin syndrome. Prior records reviewed. CT scan was negative. She was found to be hyponatremic. Blood work was obtained. ECG performed. This was unremarkable. Her anxiety tremors was treated with saline hydration and IV Ativan 1 mg 2. The patient was reassessed. She was feeling better. Her tremors and shaking improved. Her mood was much improved. The patient had resolution of her hyponatremia. Her blood work looked excellent. Total CK was negative. Urinalysis was negative. The patient may experience the nausea and ill effects from the initiation of her new medications and then subsequently was not eating or drinking. She then became more nauseated and developed hyponatremia. I suspect that this caused additional nausea and worsened her mood and anxiety. Her tremors and shaking were not consistent with a true seizure. The patient has Ativan at home. She has a small amount that will get her through today and tomorrow. She can follow -up with her primary physician as scheduled tomorrow. She can discuss her medications with them. I did provide her with a Zofran home pack. As she is feeling much better and her symptoms have resolved with improvement of her electrolytes I believe she is safe for discharge. The mother and patient felt very comfortable with the plan. I gave my usual and customary discussion regarding this issue. By the evaluation outlined above other emergent etiologies such as those listed in the differential, as well as others, were deemed relatively unlikely. The patient was educated about the findings as listed above. All questions were answered and the patient was pleased with the treatment. Return instructions were outlined and the patient was discharged in stable condition. The patient was referred to her PCP tomorrow for follow-up for a recheck of the current condition. Medication Reconcilliation Current Medication List: was personally reviewed by me Blood Pressure Screening Patient's blood pressure: Normal blood pressure Blood pressure disposition: Did not require urgent referral Impression Primary Impression: Nausea Additional Impressions: Generalized weakness Tremor Mood disorder Scribe Attestation The scribe's documentation has been prepared under my direction and personally reviewed by me in its entirety. I confirm that the note above accurately reflects all work, treatment, procedures, and medical decision making performed by me. Departure Information Dispostion Home / Self-Care Referrals Will Rudd M.D. (PCP) Forms HOME CARE DOCUMENTATION FORM, IMPORTANT VISIT INFORMATION, WORK / SCHOOL INSTRUCTIONS Patient Instructions My [facility] Additional Instructions Continue current medication except is recommended to increase Ativan to 1 mg 3 times a day as needed for anxiety or tremor until following up with your primary physician. Ativan 1mg: Take one 3 times daily as needed for severe anxiety. Do not drive if taking. May cause drowsiness. Do not take if you are at work or doing any activity where being under the influence may be dangerous. Zofran 4 mg oral dissolving tablets: take one tablet and allow it to melt in your mouth every 4 hours as needed for nausea. Follow-up with primary physician as scheduled tomorrow. Return to the ER for headache, weakness, seizures, uncontrollable tremors, passing out, difficulty breathing, fevers, numbness, tingling, severe anxiety, suicidal thoughts, worsening of your condition, or as needed. Problem Qualifiers
== END 2018-05-11 23:10 | disposition home or self-care (01) ==
LOC: C.EDB 18:52 → C.EDC 23:10
DX: R11.0 Nausea (principal); R53.1 Weakness; R25.1 Tremor, unspecified; F39 Unspecified mood [affective] disorder; F41.9 Anxiety disorder, unspecified; E11.9 Type 2 diabetes mellitus without complications; E78.5 Hyperlipidemia, unspecified; I10 Essential (primary) hypertension; Z79.899 Other long term (current) drug therapy; Z91.030 Bee allergy status; Z91.048 Other nonmedicinal substance allergy status; Z91.038 Other insect allergy status

== ENCOUNTER 2018-05-14 01:43 | Emergency (ER) | payer OTHER ==
[~2018-05-14] VITALS: Ht 162.6 cm; Wt 123.4 kg
[2018-05-14 01:46] VITALS: Ht 162.6 cm; Wt 123.4 kg
[2018-05-14] MEDS ORDERED: FAMOTIDINE 20MG/5ML IV PUSH IV STA (01:53)
[2018-05-14] MEDS ORDERED: DiphenhydrAMINE HCL 50 MG/ML VIAL IV STA (01:53)
[2018-05-14] MEDS ORDERED: SODIUM CHLORIDE 0.9% 1000ML 1,000 ML IV STA (01:53)
[2018-05-14 02:00] VITALS: O2SAT 94
[2018-05-14] MEDS ORDERED: DEXAMETHASONE **PF** INJ 10 MG/ML VIAL IV ONE (02:00)
[2018-05-14] MEDS ORDERED: CLON0.5T9 PO (02:01)
[2018-05-14] MEDS ORDERED: DEXAMETHASONE SOD INJ 10 MG/ML VIAL ONE (02:05)
[2018-05-14] MEDS ORDERED: LORAZEPAM 2 MG/ML 1 ML VIAL IV STA (02:13)
[2018-05-14 02:33] LABS: BASO % 0.2 %; BASO ABS # 0.02 K/uL (0-0.2); EOS % 3.8 %; EOS ABS # 0.31 K/uL (0-0.5); HEMOGLOBIN 13.2 g/dL (12.0-16.0); IG# 0.02 K/uL (0.00-0.02); LYMPH ABS # 2.67 K/uL (1.2-3.4); MEAN CELL VOLUME 84.1 fL (80-100); MEAN CORPUSCULAR HEMOGLOBIN 28.4 pg (25-34); MEAN CORPUSCULAR HGB CONC 33.8 g/dl (32-36); MONO % 9.1 %; MONO ABS # 0.74 K/uL (0.11-0.59); NEUT % 53.7 %; NEUT ABS # 4.33 K/uL (1.4-6.5); PLATELET COUNT 270 K/uL (130-400); RED CELL DISTRIBUTION WIDTH CV 14.5 % (11.5-14.5); WHITE BLOOD COUNT 8.09 K/uL (4.8-10.8)
[2018-05-14 03:01] LABS: ALBUMIN 3.4 gm/dl (3.4-5.0); ALKALINE PHOSPHATASE 78 U/L (45-117); ALT/SGPT 25 U/L (12-78); AST/SGOT 14 U/L (15-37); BLOOD UREA NITROGEN 13 mg/dl (7-18); CALCIUM 7.9 mg/dl (8.5-10.1); CARBON DIOXIDE 22 mmol/L (21-32); CREATININE 1.11 mg/dl (0.60-1.20); GLUCOSE 96 mg/dl (70-99); POTASSIUM 3.5 mmol/L (3.5-5.1); SODIUM 136 mmol/L (136-145); TOTAL PROTEIN 7.1 gm/dl (6.4-8.2)
[2018-05-14] MEDS ORDERED: HYDROCORTISONE 1% CR 30 GM TUBE EXT STA (03:14)
--- NOTE | 2018-05-14 03:14 | EMERGENCY ROOM VISIT NOTE ---
History First contact with patient: 01:51 Chief Complaint: ALLERGIC REACTION Stated Complaint: ALLERGIC REACTION Nursing Triage Summary: pt reports she is having an allergic reaction to mosquito bites, states "I was sleeping and all of a sudden I woke up and I couldn't swallow." reprots difficulty swallowing. reports burning in stomach. bug bites noted to neck and legs and arms, no bleeding or drainage noted. pt alert and oriented x4, breathing WNL, lungs clear in all barnes. no throat abnormailty noted. skin warm and dry. History of Present Illness The patient is a 38 year old female who presents to the Emergency Room with complaints of bug bites with itchiness and throat tightness who states she is highly allergic to mosquito bites and bees. Patient also feels anxious. Patient states she feels like she cannot swallow but is able to speak in full sentences. She is maintaining her own secretions. Patient denies chest pain, abdominal pain, facial swelling, neck stiffness, sore throat, feeling of impending doom, fever, chills. She is tolerating p.o. fluids and ambulating without difficulties. Review of Systems An 10 system review of systems was completed with positives and pertinent negatives listed in the HPI. Past Medical/Surgical History Medical Problems: (1) Allergy to bee sting (2) Diabetes mellitus type 2 (3) ESOPHAGEAL REFLUX (4) Gastritis (5) GERD (gastroesophageal reflux disease) (6) Head contusion (7) Hiatal hernia (8) HYPERLIPIDEMIA NEC/NOS (9) HYPERTENSION NOS (10) IMPAIRED FASTING GLUCOSE (11) MORBID OBESITY (12) OBESITY, NOS (13) Work related injury Surgical Problems: (1) Cholecystectomy (2) [place] Teeth Removal Family History Cancer Diabetes mellitus Gallbladder disease Heart disease Hypertension Seizures Social History Smoking Status: Never Smoker Alcohol Use: none Drug Use: none Marital Status: single Housing Status: lives with family Occupation Status: employed Current/Historical Medications Scheduled Clindamycin Phosphate (Topical (Clindamycin Phosphate), 1 APPLN TOP BID Clonazepam (Klonopin), 0.5 MG PO BID Hydroxychloroquine Sulfate (Hydroxychloroquine Sulfat), 200 MG PO BID Lisinopril/Hctz (Zestoretic 20MG/12.5MG), 1 TAB PO DAILY Meloxicam (Meloxicam), 15 MG PO DAILY Omeprazole (Prilosec), 40 MG PO DAILY Ranitidine HCl (Ranitidine HCl), 150 MG PO HS Scheduled PRN Diphenhydramine Hcl (Benadryl Allergy), 50 MG PO UD PRN for ALLERGIC REACTION Lorazepam (Lorazepam), 1 MG PO TID PRN for Anxiety/Agitation Promethazine HCl (Promethazine HCl), 25 MG PO Q6H PRN for Nausea Physical Exam Vital Signs Date Time Temp Pulse Resp B/P (MAP) Pulse Ox O2 Delivery O2 Flow Rate FiO2 05/14/18 02:09 112 05/14/18 02:00 94 Room Air 05/14/18 02:00 94 Room Air 05/14/18 02:00 94 Room Air 05/14/18 01:46 36.7 128 18 145/98 99 Room Air Physical Exam VITALS: Vitals are noted on the nurse's note and reviewed by myself. Vital signs tachycardic. GENERAL: Pleasant female anxious appearing speaking in full sentences, in no acute distress, nondiaphoretic, well-developed well-nourished. SKIN: Multiple bites to arms and legs with histamine response. The rest of the skin was without rashes, erythema, edema, or bruising. There is no tenting of the skin. Capillary reflex less than 2 seconds. HEAD: Normocephalic atraumatic. No facial swelling. EARS: External auditory canals clear, tympanic membranes pearly murillo without erythema or effusion bilaterally. EYES: Pupils equal round and reactive to light and accommodation. Conjunctivae without injection, sclerae without icterus. Extraocular movements intact. NOSE: Patent, turbinates without inflammation or discharge. No sinus tenderness. MOUTH: Mucous membranes moist. Pharynx without erythema or exudate. Uvula midline. Airway patent. Tongue does not deviate. No airway edema. NECK: Supple without nuchal rigidity. No lymphadenopathy. No thyromegaly. Cervical spine is nontender. No JVD. HEART: Tachycardic rate and rhythm without murmurs gallops or rubs. LUNGS: Clear to auscultation bilaterally without wheezes, rales or rhonchi. No retractions or accessory muscle use. ABDOMEN: Positive bowel sounds x 4. Normal tympanic percussion. Soft, protuberant, obese, nontender, without masses or organomegaly. Morrissey sign negative. No guarding or rebound tenderness. No CVA tenderness MUSCULOSKELETAL: No muscle atrophy, erythema, or edema noted. NEURO: Patient was alert and oriented to person place and time. Normal sensation to light and sharp touch. No focal neurological deficits. Medical Decision & Procedures Laboratory Results 05/14/18 02:26 Red Blood Count 4.64, Mean Corpuscular Volume 84.1, Mean Corpuscular Hemoglobin 28.4, Mean Corpuscular Hemoglobin Concent 33.8, Mean Platelet Volume 10.0, Neutrophils (%) (Auto) 53.7, Lymphocytes (%) (Auto) 33.0, Monocytes (%) (Auto) 9.1, Eosinophils (%) (Auto) 3.8, Basophils (%) (Auto) 0.2, Neutrophils # (Auto) 4.33, Lymphocytes # (Auto) 2.67, Monocytes # (Auto) 0.74, Eosinophils # (Auto) 0.31, Basophils # (Auto) 0.02 05/14/18 02:26 Test 05/14/18 02:26 White Blood Count 8.09 K/uL (4.8-10.8) Red Blood Count 4.64 M/uL (4.2-5.4) Hemoglobin 13.2 g/dL (12.0-16.0) Hematocrit 39.0 % (37-47) Mean Corpuscular Volume 84.1 fL (80-100) Mean Corpuscular Hemoglobin 28.4 pg (25-34) Mean Corpuscular Hemoglobin Concent 33.8 g/dl (32-36) Platelet Count 270 K/uL (130-400) Mean Platelet Volume 10.0 fL (7.4-10.4) Neutrophils (%) (Auto) 53.7 % Lymphocytes (%) (Auto) 33.0 % Monocytes (%) (Auto) 9.1 % Eosinophils (%) (Auto) 3.8 % Basophils (%) (Auto) 0.2 % Neutrophils # (Auto) 4.33 K/uL (1.4-6.5) Lymphocytes # (Auto) 2.67 K/uL (1.2-3.4) Monocytes # (Auto) 0.74 K/uL (0.11-0.59) Eosinophils # (Auto) 0.31 K/uL (0-0.5) Basophils # (Auto) 0.02 K/uL (0-0.2) RDW Standard Deviation 45.0 fL (36.4-46.3) RDW Coefficient of Variation 14.5 % (11.5-14.5) Immature Granulocyte % (Auto) 0.2 % Immature Granulocyte # (Auto) 0.02 K/uL (0.00-0.02) Anion Gap 8.0 mmol/L (3-11) Est Creatinine Clear Calc Drug Dose 90.0 ml/min Estimated GFR () 73.5 Estimated GFR (Non- 63.4 BUN/Creatinine Ratio 12.0 (10-20) Calcium Level 7.9 mg/dl (8.5-10.1) Magnesium Level 2.1 mg/dl (1.8-2.4) Total Bilirubin 0.2 mg/dl (0.2-1) Direct Bilirubin < 0.1 mg/dl (0-0.2) Aspartate Amino Transf (AST/SGOT) 14 U/L (15-37) Alanine Aminotransferase (ALT/SGPT) 25 U/L (12-78) Alkaline Phosphatase 78 U/L (45-117) Total Protein 7.1 gm/dl (6.4-8.2) Albumin 3.4 gm/dl (3.4-5.0) Thyroid Stimulating Hormone (TSH) 2.720 uIu/ml (0.300-4.500) Human Chorionic Gonadotropin, Qual NEG (NEG) Medications Administered Medications (Trade) Dose Ordered Sig/Figueroa Route Start Time Stop Time Status Last Admin Dose Admin Diphenhydramine HCl (Benadryl Inj) 50 mg NOW STAT IV 05/14/18 01:53 05/14/18 01:55 DC 05/14/18 02:05 50 MG Famotidine (Pepcid 20mg Iv Push) 20 mg ONE STAT IV 05/14/18 01:53 05/14/18 01:55 DC 05/14/18 02:06 20 MG Sodium Chloride 1,000 ml @ 999 mls/hr Q1H1M STAT IV 05/14/18 01:53 05/14/18 02:53 DC 05/14/18 02:06 999 MLS/HR Lorazepam (Ativan Inj) 1 mg NOW STAT IV 05/14/18 02:13 05/14/18 02:14 DC 05/14/18 02:30 1 MG ED Course Prior records/ancillary studies reviewed. Triage Nursing notes reviewed. Additional history obtained from family. The patient's history was concerning for possible allergic reaction. Differential diagnosis: Etiologies such as allergic reaction, anaphylaxis, urticaria, Alvarenga-Ivan syndrome, toxic epidermal necrolysis, erythema multiforme, cellulitis, as well as others were entertained. Physical examination: As above. Patient is anxious appearing ER treatment provided: Continuous cardiac monitoring Benadryl 50 mg IV Pepcid 20 mg IV Ativan 1 mg IV Normal saline On reassessment the patient felt better. Diagnostic interpretation by me: Labs: Stable H&H. No leukocytosis. Negative hCG. Patient was requesting blood work as she felt anxious and thought it might be on an electrolyte abnormality and is requesting blood work. It appears the patient had an allergic reaction to her bug bites with anxiety. The above treatment did well to reverse the symptoms. After prolonged monitoring and frequent reassessments the patient did very well and symptoms resolved. The patient was counseled on the spectrum of this disease process and told to avoid potential triggers. I gave my usual and customary discussion regarding this issue. Patient also felt much better to being medicated as above. Her anxiety had subsided. She is informed to see her family care doctor for further management and treatment for her anxiety as her meds might need to be readjusted again. By the evaluation outlined above emergent etiologies such as recurring anaphylaxis, anaphylatic shock, airway compromise, Alvarenga-Ivan syndrome, toxic epidermal necrolysis, erythema multiforme, infectious etiologies, as well as others were deemed relatively unlikely. The pt informed about the findings as listed above. All questions were answered and pleased with the treatment. Return instructions were outlined and the patient was discharged in stable condition. Referral: The patient was referred back to primary care physician for follow-up in 2-3 days for a recheck of the current condition. The chart was completed utilizing [employer] Speech voice recognition software. Grammatical errors, random word insertions, pronoun errors, and incomplete sentences are an occassional consequence of this system due to software limitations, ambient noise, and hardware issues. Any formal questions or concerns about the content, text, or information contained within the body of this dictation should be directly addressed to the physician dental front office assistant for clarification. Medical Decision As above Medication Reconcilliation Current Medication List: was personally reviewed by me Blood Pressure Screening Patient's blood pressure: Normal blood pressure Impression Primary Impression: Allergic reaction Additional Impression: Anxiety attack Departure Information Dispostion Home / Self-Care Condition GOOD Referrals Will Rudd M.D. (PCP) Patient Instructions My [facility] Additional Instructions DO NOT drive, drink alcohol, operate machinery, or perform dangerous activities today. You were given medications in the ER that can affect your ability to safely function or operate a vehicle. Diphenhydramine(Benadryl) 25mg: use 25 to 50 mg every six hours for swelling, itching, or hives. This medication is sedating and will cause drowsiness. Avoid alcohol, operating machinery or dangerous equipment, working on ladders or roofs, DRIVING, or situations where being under the influence may be dangerous. Zantac 75: Take two pills twice a day along with Benadryl as needed for swelling , itching, or hives. Most people know this for its affect on the stomach, but it also acts similar to, but less potent than Benadryl for allergic reactions. Both the Benadryl and the Zantac are available [id number]. Continue current medications. Return to the emergency department for worsening of your rash, swelling of your face, lips, tongue, or throat, difficulty breathing, vomiting, or as needed. Follow-up with your primary care physician in 2 to 3 days for a recheck of your current condition. Problem Qualifiers Primary Impression: Allergic reaction Encounter type: initial encounter Qualified Codes: T78.40XA - Allergy, unspecified, initial encounter
[2018-05-14] MEDS ORDERED: HYDROCORTISONE HC 2.5% CRM 30GM TUBE EXT ONE (03:22)
[2018-05-14 03:27] VITALS: BP 124/84; PULSE 98; O2SAT 100
== END 2018-05-14 03:27 | disposition home or self-care (01) ==
LOC: C.EDB 01:44
DX: T78.40XA Allergy, unspecified, initial encounter (principal); F41.9 Anxiety disorder, unspecified; W57.XXXA Bitten or stung by nonvenomous insect and other nonvenomous arthropods, initial encounter; I10 Essential (primary) hypertension; K21.9 Gastro-esophageal reflux disease without esophagitis

== ENCOUNTER 2018-05-14 03:55 | Emergency (ER) | payer OTHER ==
[~2018-05-14] VITALS: Ht 162.6 cm; Wt 126.1 kg
[~2018-05-14 03:55] MED LIST changes: +CLON0.5T9 PO
[2018-05-14 04:04] VITALS: TEMP 36.6; Ht 162.6 cm; Wt 126.1 kg
[2018-05-14] MEDS ORDERED: LORAZEPAM 1 MG TAB SL STA (04:13)
--- NOTE | 2018-05-14 05:37 | EMERGENCY ROOM VISIT NOTE ---
History First contact with patient: 04:03 Chief Complaint: ANXIETY Stated Complaint: SHAKING,BREATHING HARD History of Present Illness The patient is a 38 year old female who presents to the Emergency Room with complaints of feeling anxious, nervous, shaky and hard to breathe for the past 10 minutes. Patient was just discharged from this ER by myself and states she was in the car ride home back to [place] and started having anxiety again. This is the patient's 5th ER visit this past week and a half. Patient states she has been having problems with her anxiety and how to cope with it. Her family doctor has been changing of her medications. Patient states she does not have a therapist. She was given a call on Tuesday to schedule an appointment with 1. Patient denies chest pain, fever, chills, cough, congestion , abdominal pain, leg pain or swelling. Patient did not try any of her anxiety medication as it was at home. Patient did state she felt much better with the Ativan she received for me while in the ER. Patient denies suicidal or homicidal ideations. Review of Systems An 10 system review of systems was completed with positives and pertinent negatives listed in the HPI. Past Medical/Surgical History Medical Problems: (1) Allergy to bee sting (2) Diabetes mellitus type 2 (3) ESOPHAGEAL REFLUX (4) Gastritis (5) GERD (gastroesophageal reflux disease) (6) Head contusion (7) Hiatal hernia (8) HYPERLIPIDEMIA NEC/NOS (9) HYPERTENSION NOS (10) IMPAIRED FASTING GLUCOSE (11) MORBID OBESITY (12) OBESITY, NOS (13) Work related injury Surgical Problems: (1) Cholecystectomy (2) [place] Teeth Removal Family History Cancer Diabetes mellitus Gallbladder disease Heart disease Hypertension Seizures Social History Smoking Status: Never Smoker Alcohol Use: none Drug Use: none Marital Status: single Housing Status: lives with family Occupation Status: employed Current/Historical Medications Scheduled Clindamycin Phosphate (Topical (Clindamycin Phosphate), 1 APPLN TOP BID Clonazepam (Klonopin), 0.5 MG PO BID Hydroxychloroquine Sulfate (Hydroxychloroquine Sulfat), 200 MG PO BID Lisinopril/Hctz (Zestoretic 20MG/12.5MG), 1 TAB PO DAILY Meloxicam (Meloxicam), 15 MG PO DAILY Omeprazole (Prilosec), 40 MG PO DAILY Ranitidine HCl (Ranitidine HCl), 150 MG PO HS Scheduled PRN Diphenhydramine Hcl (Benadryl Allergy), 50 MG PO UD PRN for ALLERGIC REACTION Lorazepam (Lorazepam), 1 MG PO TID PRN for Anxiety/Agitation Promethazine HCl (Promethazine HCl), 25 MG PO Q6H PRN for Nausea Physical Exam Vital Signs Date Time Temp Pulse Resp B/P (MAP) Pulse Ox O2 Delivery O2 Flow Rate FiO2 05/14/18 04:04 36.6 101 22 145/90 99 Room Air Physical Exam VITALS: Vitals are noted on the nurse's note and reviewed by myself. Vital signs stable. GENERAL: Anxious appearing female hyperventilating, in no acute distress, nondiaphoretic, well-developed well-nourished. SKIN: Multiple bug bites to arms and legs without signs of infection. The rest of the skin was without rashes, erythema, edema, or bruising. There is no tenting of the skin. Capillary reflex less than 2 seconds. HEAD: Normocephalic atraumatic. EARS: External auditory canals clear, tympanic membranes pearly murillo without erythema or effusion bilaterally. EYES: Pupils equal round and reactive to light and accommodation. Conjunctivae without injection, sclerae without icterus. Extraocular movements intact. NOSE: Patent, turbinates without inflammation or discharge. MOUTH: Mucous membranes moist. Pharynx without erythema or exudate. Uvula midline. Airway patent. Tongue does not deviate. NECK: Supple without nuchal rigidity. No lymphadenopathy. No thyromegaly. Cervical spine is nontender. No JVD. HEART: Regular rate and rhythm without murmurs gallops or rubs. LUNGS: Clear to auscultation bilaterally without wheezes, rales or rhonchi. No retractions or accessory muscle use. ABDOMEN: Positive bowel sounds x 4. Normal tympanic percussion. Soft, nontender, without masses or organomegaly. Morrissey sign negative. No guarding or rebound tenderness. No CVA tenderness MUSCULOSKELETAL: No muscle atrophy, erythema, or edema noted. NEURO: Patient was alert and oriented to person place and time. Normal sensation to light and sharp touch. No focal neurological deficits. Medical Decision & Procedures Medications Administered Medications (Trade) Dose Ordered Sig/Figueroa Route Start Time Stop Time Status Last Admin Dose Admin Lorazepam (Ativan Tab) 1 mg NOW STAT SL 05/14/18 04:13 05/14/18 04:14 DC 05/14/18 04:25 1 MG ED Course Prior records/ancillary studies reviewed. Triage Nursing notes reviewed. Additional history obtained from family The patient's history was concerning for possible psychiatric disturbance. Differential diagnosis: Etiologies such as mood disorder, infection, hypoglycemia, electrolyte abnormalities, cardiac sources, intracerebral event, toxicologic, neurologic, as well as others were entertained. Physical examination: The physical examination was performed as above and was completely benign. No emergent medical pathologies were noted. ER treatment provided: Ativan On reassessment the patient felt better. Diagnostic interpretation by me: The labs revealed labs from prior visit of 15 minutes ago was reviewed with no acute findings. Patient was euthyroid. Negative hCG. Stable H&H. Consultation: A consultation was placed with mental health. They refused to see the patient unless repeat labs were drawn. Exam and history seem consistent with anxiety. Patient felt better to being medicated as above. Patient requested to leave and did not want a mental health evaluation after realizing she did have repeat labs drawn. I felt this is reasonable as she was not suicidal or homicidal and felt much better after being medicated as above.. Patient was encouraged to follow-up outpatient with behavioral health for her ongoing symptoms. She was advised to follow-up family care doctor on Tuesday for readjustment of her medications. She is advised to return to the ER immediately for chest pain, difficulty breathing, behavioral health concerns, worsening signs or symptoms or as needed. Patient denies suicidal / homicidal ideations. She was well-appearing. She was neurovascularly and neurologically intact. By the evaluation outlined above emergent etiologies such as infection, hypoglycemia, electrolyte abnormalities, cardiac sources, intracerebral event, toxicologic, neurologic,as well as others were deemed relatively unlikely. It appears the patient is dealing with a psychiatric disturbance. The pt informed about the findings as listed above. All questions were answered and pleased with the treatment. Return instructions were outlined and the patient was discharged in stable condition. Referral: Call the solar sales specialist in [place] as instructed by family care doctor tomorrow morning for further evaluation and treatment for your anxiety.. And The patient was referred back to their primary care physician for follow-up in 2 to 3 days for a recheck of the current condition. Case reviewed with my attending The chart was completed utilizing Dragon Speech voice recognition software. Grammatical errors, random word insertions, pronoun errors, and incomplete sentences are an occassional consequence of this system due to software limitations, ambient noise, and hardware issues. Any formal questions or concerns about the content, text, or information contained within the body of this dictation should be directly addressed to the physician entry level assistant manager for clarification. Medical Decision As above Blood Pressure Screening Patient's blood pressure: Elevated blood pressure Blood pressure disposition: Elevated BP felt to be situational Impression Primary Impression: Acute anxiety Departure Information Dispostion Home / Self-Care Condition GOOD Referrals Will Rudd M.D. (PCP) Patient Instructions My [facility] Additional Instructions Try chamomile tea, yoga, Pilates and meditation to decrease your stress and anxiety. Continue your current medications. Return to the ER for severe anxiety or depression, thoughts of hurting yourself or others, inability to function, hallucinations, worsening of your condition, or as needed. Follow up with the solar sales specialist in [place] as instructed by her family care doctor. Call Tuesday for your appointment. Follow up with your primary care physician this week for a recheck of your current condition and continued care.
[2018-05-14 05:52] VITALS: BP 131/81; PULSE 99; O2SAT 98
== END 2018-05-14 05:53 | disposition home or self-care (01) ==
LOC: C.EDB 03:57
DX: F41.9 Anxiety disorder, unspecified (principal); I10 Essential (primary) hypertension; K21.9 Gastro-esophageal reflux disease without esophagitis